=== PATIENT | male | born 1940 | race Two or more races ===

== ENCOUNTER 2025-07-04 11:17 | Inpatient (IN) | payer OTHER ==
[~2025-07-04] VITALS: Ht 167.6 cm; Wt 63.8 kg
--- NOTE | 2025-07-04 11:47 | ED.PDOC ---
History of Present Illness HPI Comments 84M presents to the ER w/ daughter and w/ prior MHx of ESRD, High Lipids, DM, HTN, CVAx3, Cancer, MS, CHF:SHx of cardiac Stents, left arm Fistula, Cholecystectomy, Partial Prostate Sx and the c/c of Bilat LE swelling. Daughter reports on the pt having had Bilateral LE edema associated w/ ecchymosis to the bilateral feet, all occurring during the past week. Daughter states on the pt having N/ S/P Dialysis. Denies any symptoms at this time. Patient denies any CP, SOB, dizziness, numbness, weakness, tingling, fever, chills, or recent fall. Chief Complaint: Extremity Swelling Time Seen by MD: 11:30 Reviewed Notes: Nurses Notes, Medications, Allergies Allergies: Coded Allergies: No Known Drug Allergy (Verified Allergy, Unknown, 07/04/25) Information Source: Patient, Relative (Child) Mode of Arrival: Ambulatory Severity: Moderate Timing: Days Duration: Since onset, Days Prehospital treatment: None Past Medical History PAST MEDICAL HISTORY: Cancer, CHF, CVA (x3), DM, ESRD, High Lipids, HTN, MS Surgical History: Cholecystectomy Surgical History (Other): Cardiac Stents, Left arm Fistula, Partial Prostate Sx Family History Family History: Reviewed,noncontributory to illness, Unknown Social History Smoker: Non-Smoker Alcohol: Denies ETOH Use Drugs: Denies Drug Use Lives In: Home Constitutional: denies: chills, diaphoresis, fatigue, fever, malaise, sweats, weakness, others EENTM: denies: blurred vision, double vision, ear bleeding, ear discharge, ear drainage, ear pain, ear ringing, eye pain, eye redness, hearing loss, mouth pain, mouth swelling, nasal discharge, nose bleeding, nose congestion, nose pain, photophobia, tearing, throat pain, throat swelling, voice changes, others Respiratory: denies: cough, hemoptysis, orthopnea, SOB at rest, shortness of breath, SOB with excertion, stridor, wheezing, others Cardiovascular: reports: edema (Bilateral LE); denies: chest pain, dizzy spells, diaphoresis, Dyspnea on exertion, irregular heart beat, left arm pain, lightheadedness, palpitations, PND, syncope, others Gastrointestinal: reports: nausea; denies: abdomen distended, abdominal pain, blood streaked bowels, constipated, diarrhea, dysphagia, difficulty swallowing, hematemesis, melena, poor appetite, poor fluid intake, rectal bleeding, rectal pain, vomiting, others Genitourinary: denies: burning, dysuria, flank pain, frequency, hematuria, incontinence, penile discharge, penile sore, pain, testicle pain, testicle swelling, urgency, others Neurological: denies: dizziness, fainting, headache, left sided numbness, left sided weakness, numbness, paresthesia, pre-existing deficit, right sided numbness, right sided weakness, seizure, speech problems, tingling, tremors, weakness, others Musculoskeletal: denies: back pain, gout, joint pain, joint swelling, muscle pain, muscle stiffness, neck pain, others Integumetry: denies: bruises, change in color, change in hair/nails, dryness, laceration, lesions, lumps, rash, wounds, others Allergic/Immunocompromised: denies: Difficulty Healing, Frequent Infections, Hives, Itching, others Hematologic/Lymphatic: denies: anemia, blood clots, easy bleeding, easy bruising, swollen glands, others Endocrine: denies: excessive hunger, excessive sweating, excessive thirst, excessive urination, flushing, intolerance to cold, intolerance to heat, unexplained weight gain, unexplained weight loss, others Psychiatric: denies: anxiety, bipolar disorder, depression, hopeless, panic disorder, schizophrenia, sleepless, suicidal, others All Other Systems: Reviewed and Negative Physical Exam General Appearance: Moderate Distress HEENT: Normal ENT Inspection, Pharynx Normal, TMs Normal Neck: Full Range of Motion, Non-Tender, Normal, Normal Inspection Respiratory: Chest Non-Tender, Decreased Breath Sounds, No Accessory Muscle Use, Rales Cardiovascular: No Edema, No JVD, No Murmur, No Gallop, Normal Peripheral P ulses, Regular Rate/Rhythm Breast Exam: Deferred Gastrointestinal: No Organomegaly, Non Tender, No Pulsatile Mass, Normal Bowel Sounds, Soft Genitalia: Deferred Pelvic: Deferred Rectal: Deferred Extremities: No calf tenderness, Normal capillary refill, Pedal edema Musculoskeletal : Apperance: Normal Neurologic: Alert, academic affairs assistant II-XII nml as Tested, Motor Weakness, Normal Affect, Normal Mood, No Sensory Deficits Cerebellar Function: Normal Reflexes: Normal Skin: Dry, Normal Color, Warm Lymphatic: No Adenopathy Was a procedure done? Was a procedure done?: No Differential Dx Considerations may include: Generalized weakness, electrolyte imbalance, CHF, DVT X-Ray, Labs, Meds, VS Vital Signs Date Time Temp Pulse Resp B/P (MAP) Pulse Ox O2 Delivery O2 Flow Rate FiO2 07/04/25 11:19 98.0 102 16 144/96 94 98.0 Lab Test 07/04/25 12:23 Range/Units White Blood Count 9.8 4.4-10.8 10^3/uL Red Blood Count 3.84 L 4.5-5.90 10^6/uL Hemoglobin 12.9 L 13.5-17.5 g/dL Hematocrit 39.3 L 41.0-53.0 % Mean Corpuscular Volume 102.2 H 80.0-100.0 fL Mean Corpuscular Hemoglobin 33.5 H 28.0-32.0 pg Mean Corpuscular Hemoglobin Concent 32.8 32.0-36.0 g/dL Red Cell Distribution Width 16.5 H 11.8-14.3 % Platelet Count 90 L 140-450 10^3/uL Mean Platelet Volume 10.7 6.9-10.8 fL Neutrophils (%) (Auto) 85.0 H 37.0-80.0 % Lymphocytes (%) (Auto) 3.8 L 10.0-50.0 % Monocytes (%) (Auto) 4.6 0.0-12.0 % Eosinophils (%) (Auto) 5.8 0.0-7.0 % Basophils (%) (Auto) 0.8 0.0-2.0 % Neutrophils # (Auto) 8.3 1.6-8.6 10 ^3/uL Lymphocytes # (Auto) 0.4 0.4-5.4 10 ^3/uL Monocytes # (Auto) 0.5 0-1.3 10 ^3/uL Eosinophils # (Auto) 0.6 0-0.8 10 ^3/uL Basophils # (Auto) 0.1 0-0.2 10 ^3/uL Nucleated Red Blood Cells 0.0 % Sodium Level 133 L 136-145 mmol/L Potassium Level 4.1 3.5-5.1 mmol/L Chloride Level 93 L 98-107 mmol/L Carbon Dioxide Level 29 20-31 mmol/L Anion Gap 11 5-15 Blood Urea Nitrogen 43 H 9-23 mg/dL Creatinine 4.51 H 0.700-1.30 mg/dL Glomerular Filtration Rate Calc 12 >90 mL/min BUN/Creatinine Ratio 9.5 L 10.0-20.0 Serum Glucose 222 H 74-106 mg/dL Lactic Acid Level 1.7 0.4-2.0 mmol/L Calcium Level 8.6 L 8.7-10.4 mg/dL B-Type Natriuretic Peptide > 5000.00 0-100 pg/mL DVT study bilaterally is negative The chest x-ray shows: IMPRESSION: Cardiomegaly with CHF. Small left pleural effusion. The BNP is greater than 5000 The glucose is 222 The chemistry and CBC is within normal limits except for BUN of 43 and a creatinine of 4.51 The patient is being admitted at this time Images Reviewed?: Images reviewed and evaluated by me Time of 1ST Reevaluation: 12:00 Reevaluation 1ST: Unchanged Patient Education/Counseling: Diagnosis, Treatment, Prognosis Family Education/Counseling: Diagnosis, Treatment, Prognosis SEPSIS Sepsis Screen Date sepsis recognized/suspect: Jul 04, 2025 Time Sepsis recognized/suspect: 1123 Recent Procedure: No On Antibiotic Therapy: No Respiratory Rate >20: No Heart Rate >90: No Temp<36 C (96.8 F) or >38.3 C: No SBP <90 or MAP <65 mmHG: No New Acute Mental Status Change: No Is the patient on CPAP, BIPAP,: No Physician Orders Heplock Iv (07/04/25 11:35) Pulse Oximetry (07/04/25 11:35) Packaging Sales Consultant (07/04/25 11:35) Blood Pressure (07/04/25 11:35) Chest Two Views Routine (07/04/25 11:35) Electrocardigram (07/04/25 11:35) Blood Culture (07/04/25 11:35) Bilat Lower Dvt (07/04/25 11:35) Consistent Carb(Ccho)Diabetes (07/04/25 Lunch) Glucose Blood (Accu-Chek Comfort Curve T (07/04/25 17:00) Insulin R (Human) (Insulin R) (07/04/25 22:00) Insulin R (Human) (Insulin R) (07/04/25 17:00) Dextrose 50% Syringe (07/04/25 13:15) Allergies (07/04/25 13:13) Code Status (07/04/25 13:13) Sodium Chloride Lock (Saline Lock Ns) (07/04/25 14:00) Oxygen Per Hour (07/04/25 13:13) Hydrocodone-Acet 5/325mg Tab ([place] 5/32 (07/04/25 13:15) Ondansetron Hcl (Zofran) (07/04/25 13:15) Docusate Sodium Capsule (Colace Capsule) (07/04/25 13:15) Fall Risk Precautions In Place QSHIFT (07/04/25 13:13) Complete Blood Count (07/05/25 04:00) Comprehensive Metabolic Panel (07/05/25 04:00) Echo 2d Mode Cardiac Dop (07/04/25 13:13) Condition: Serious (07/04/25 13:13) Acetaminophen Tablet (Tylenol Tablet) (07/04/25 13:15) Maintain Bed Rest (07/04/25 13:13) Sequential Compression Device (07/04/25 ) Atorvastatin (Lipitor) (07/04/25 22:00) Carvedilol Tablet (Coreg Tablet) (07/04/25 22:00) Clonidine Hcl Tablet (Catapres Tablet) (07/04/25 13:15) Tamsulosin Hydrochloride (Flomax) (07/04/25 18:00) Vital Signs Date Time Temp Pulse Resp B/P (MAP) Pulse Ox O2 Delivery O2 Flow Rate FiO2 07/04/25 11:19 98.0 102 16 144/96 94 98.0 Laboratory Tests Test 07/04/25 12:23 Lactic Acid Level 1.7 mmol/L (0.4-2.0) White Blood Count 9.8 10^3/uL (4.4-10.8) Departure 1 Departure Time of Disposition: 13:48 Impression: Primary Impression: Acute on chronic diastolic heart failure Additional Impression: Pedal edema Disposition: 09 ADMITTED INPATIENT Admit to: Tele Condition: Other Critical Care Note Critical Care Time?: No Stability Stability form required: Yes Unstable for transfer: Telemetry monitoring (Telemetry monitoring required), ED Physician Assesment (Clinical assesment) Heart Score Heart Score: Heart Score Response (Comments) Value History N/A 0 EKG N/A 0 Age N/A 0 Risk Factors N/A 0 Troponin N/A 0 Total 0 I personally scribed for MACRINA HARDIN MD ([email or web address]) on 07/04/25 at 11:47. Electronically submitted by Rick Solorio ([email or web address]). MACRINA HARDIN MD Jul 04, 2025 11:47
--- NOTE | 2025-07-04 12:12 | DVH ---
CHEST RADIOGRAPH Indication: sob Technique: Frontal and lateral view of the chest was obtained Comparison: XY CHEST PORTABLE on DOS: 03/19/25, XY CHEST PORTABLE on DOS: 02/28/25, XY CHEST PORTABLE on DOS: 11/20/24, XY CHEST PORTABLE on DOS: 11/17/24, XY CHEST XRAY 1 VIEW on DOS: 11/01/24 FINDINGS: Lines and Tubes: None Lungs: Increased interstitial prominence. This may represent pulmonary vascular congestion and/or viral pneumonia. Pleura: Small left pleural effusion. No pneumothorax. Cardiomediastinal contours: Cardiomegaly. Bones: Unremarkable IMPRESSION: Cardiomegaly with CHF. Small left pleural effusion.
--- NOTE | 2025-07-04 12:28 | DVH ---
Bilateral lower extremity venous duplex Clinical History: swelliing Comparison: US BILAT LOWER DVT on DOS: 11/02/24, US BILAT LOWER DVT on DOS: 12/01/23 Findings: Duplex Doppler evaluation of the deep venous systems of both lower extremities from the common femoral veins to the popliteal veins including color Doppler and spectral/pulsed waveform analysis was performed. RIGHT SIDE: The common femoral vein demonstrates appropriate compressibility and waveform variability. There is compressibility/patency of the great saphenous vein at the proximal thigh. The femoral vein demonstrates appropriate compressibility and waveform variability. The deep femoral vein demonstrates appropriate compressibility and waveform variability. The popliteal vein demonstrates appropriate compressibility and waveform variability. There is normal compressibility at the tibioperoneal trunk. LEFT SIDE: The common femoral vein demonstrates appropriate compressibility and waveform variability. There is compressibility/patency of the great saphenous vein at the proximal thigh. The femoral vein demonstrates appropriate compressibility and waveform variability. The deep femoral vein demonstrates appropriate compressibility and waveform variability. The popliteal vein demonstrates appropriate compressibility and waveform variability. There is normal compressibility at the tibioperoneal trunk. IMPRESSION: No right or left femoropopliteal venous thrombosis. If clinical concern/symptoms persist or worsen, short-interval follow-up study is suggested. END IMPRESSION:
[2025-07-04 12:54] LABS: Mean Corpuscular Hemoglobin 33.5 pg (28.0-32.0); Nucleated Red Blood Cells % 0.0 %
[2025-07-04 12:55] LABS: Hematocrit 39.3 % (41.0-53.0); Hemoglobin 12.9 g/dL (13.5-17.5); Mean Corpuscular Volume 102.2 fL (80.0-100.0)
[2025-07-04 12:58] LABS: Potassium 4.1 mmol/L (3.5-5.1)
[2025-07-04 12:59] LABS: Anion Gap 11 (5-15); Carbon Dioxide 29 mmol/L (20-31)
[2025-07-04 13:01] LABS: Calcium 8.6 mg/dL (8.7-10.4); Chloride 93 mmol/L (98-107); Sodium 133 mmol/L (136-145)
[2025-07-04 13:04] LABS: BUN/Creatinine Ratio 9.5 (10.0-20.0)
[2025-07-04 13:05] LABS: Blood Urea Nitrogen 43 mg/dL (9-23); Glucose 222 mg/dL (74-106)
[2025-07-04] MEDS ORDERED: ACETAMINOPHEN 325 MG TAB PO PRN (13:15)
[2025-07-04] MEDS ORDERED: DOCUSATE SOD 100 MG CAP PO PRN (13:15)
[2025-07-04] MEDS ORDERED: ONDANSETRON HCL 4 MG/2 ML VIAL IV PRN (13:15)
[2025-07-04] MEDS: SODIUM CHLOR 0.9% PF (SALINE LOCK) 10ML VIAL/SYR IV SCH (14:00)
--- NOTE | 2025-07-04 14:58 | DVHHP2 ---
History of Present Illness Reason for Visit: Acute exacerbation of congestive heart failure History of Present Illness The patient is a 84-year-old male with past medical history of kidney cancer, CH F, CVA, end-stage renal disease on hemodialysis T,TH,SAT, hyperlipidemia, HI, and hypertension who presented to [facility] ED accompanied by daughter with complaint of bilateral lower extremity pitting edema. Patient reports he has been experiencing lower extremity swelling associated with ecchymoses of the feet for the past 1 week, getting worse today that prompted this visit. Patient was seen and evaluated in the ED, laboratory data shows WBC 9.8, hemoglobin 12.9, hematocrit 39.3, platelets 90, sodium 133, potassium 4.1, BUN 43, creatinine 4.51, GFR 12, glucose 222, calcium 8.6, BNP > 5000, blood pressure 144/96, heart rate 102, temperature 98.0 F, O2 saturation 95% on room air. Chest x-ray revealing cardiomegaly with congestive heart failure, small left pleural effusion. Please see medication orders section in the computer. On my assessment, patient denied chest pain, no headache, dizziness, diaphoresis, shortness of breaths, no abdominal pain, diarrhea, nausea, vomiting, fever, no chills. Patient was admitted for further evaluation and medical management. Past Medical History Kidney cancer, CHF, CVA (x3), DM, ESRD, High Lipids, HTN, HI Past Surgical History Cholecystectomy, Cardiac Stents, Left arm Fistula, Partial Prostate surgery Family History Reviewed, noncontributory to the management of this case. Past Social History The patient lives at home, denies smoking, alcohol or illicit drugs abuse. Review of Systems Constitutional: Yes: Weakness; No: Fever, Chills, Sweats, Malaise, Other Eyes: No: Pain, Vision change, Conjunctivae inflammation, Eyelid inflammation, Other, Redness ENT: No: Ear pain, Ear discharge, Nose pain, Nose discharge, Nose congestion, Mouth pain, Mouth swelling, Throat pain, Throat swelling, Other Respiratory: Shortness of breath; No: Cough, Dry, SOB with excertion, Wheezing, Hemoptysis, Pleuritic Pain, Sputum, Wheezing, Other Cardiovascular: Edema (Lower extremity); No: Chest Pain, Palpitations, Orthopnea, Paroxysmal Noc. Dyspnea, Lt Headedness, Other Gastrointestinal: No: Nausea, Vomiting, Abdominal Pain, Diarrhea, Constipation, Melena, Hematochezia, Other Genitourinary: No Dysuria, No Frequency, No Incontinence, No Hematuria, No Retention; Other (On hemodialysis) Musculoskeletal: other (Left arm AV shunt); No: neck pain, shoulder pain, arm pain, back pain, hand pain, leg pain, foot pain Skin: No: Rash, Lesions, Jaundice, Bruising, Other Neurological: No: Weakness, Numbness, Incoordination, Change in speech, Confusion, Seizures, Other Allergies: Coded Allergies: No Known Drug Allergy (Verified Allergy, Unknown, 07/04/25) Medications Current Medications Medications Dose Ordered Sig/Markus Route Start Time Stop Time Status Last Admin Dose Admin Diagnostic Test (Pha) 1 strip ACHS 07/04/25 17:00 Insulin Human Regular HS SC 07/04/25 22:00 Insulin Human Regular AC SC 07/04/25 17:00 Dextrose 50 ml UD PRN IV 07/04/25 13:15 Sodium Chloride 10 ml Q8HR IV 07/04/25 14:00 Acetaminophen/ Hydrocodone Bitart 1 tab Q4HP PRN PO 07/04/25 13:15 Ondansetron HCl 4 mg Q4HP PRN IV 07/04/25 13:15 Docusate Sodium 100 mg BIDPRN PRN PO 07/04/25 13:15 Acetaminophen 650 mg Q6HP PRN PO 07/04/25 13:15 Atorvastatin Calcium 10 mg HS PO 07/04/25 22:00 Carvedilol 12.5 mg Q12HR PO 07/04/25 22:00 Clonidine HCl 0.1 mg Q4HP PRN PO 07/04/25 13:15 Tamsulosin HCl 0.4 mg QPM PO 07/04/25 18:00 Exam Vital Signs Vital Signs Date Time Temp Pulse Resp B/P (MAP) Pulse Ox O2 Delivery O2 Flow Rate FiO2 07/04/25 11:19 98.0 102 16 144/96 94 98.0 General Appearance: Alert, Oriented X3, Cooperative, No acute distress HEENT: Atraumatic, PERRLA, EOMI, Mucous membr. moist/pink Respiratory: Normal air movement, Other (Diminished breath sounds) Cardiovascular: Regular rate, Normal S1, Normal S2, No murmurs Abdominal: Normal bowel sounds, Soft, No tenderness, No hepatospenomegaly, No masses Extremities: No clubbing, No cyanosis, No edema, Normal pulses, No tenderness/swelling Skin: No rashes, No significant lesion Neuro: Normal speech, Normal tone, Sensation intact, Cranial nerves 3-12 NL, Reflexes 2+, Other (Generalized weakness) Psych/Mental Status: Mental status NL, Mood NL Labs/Xrays Labs Test 07/04/25 12:23 Range/Units White Blood Count 9.8 4.4-10.8 10^3/uL Red Blood Count 3.84 L 4.5-5.90 10^6/uL Hemoglobin 12.9 L 13.5-17.5 g/dL Hematocrit 39.3 L 41.0-53.0 % Mean Corpuscular Volume 102.2 H 80.0-100.0 fL Mean Corpuscular Hemoglobin 33.5 H 28.0-32.0 pg Mean Corpuscular Hemoglobin Concent 32.8 32.0-36.0 g/dL Red Cell Distribution Width 16.5 H 11.8-14.3 % Platelet Count 90 L 140-450 10^3/uL Mean Platelet Volume 10.7 6.9-10.8 fL Neutrophils (%) (Auto) 85.0 H 37.0-80.0 % Lymphocytes (%) (Auto) 3.8 L 10.0-50.0 % Monocytes (%) (Auto) 4.6 0.0-12.0 % Eosinophils (%) (Auto) 5.8 0.0-7.0 % Basophils (%) (Auto) 0.8 0.0-2.0 % Neutrophils # (Auto) 8.3 1.6-8.6 10 ^3/uL Lymphocytes # (Auto) 0.4 0.4-5.4 10 ^3/uL Monocytes # (Auto) 0.5 0-1.3 10 ^3/uL Eosinophils # (Auto) 0.6 0-0.8 10 ^3/uL Basophils # (Auto) 0.1 0-0.2 10 ^3/uL Nucleated Red Blood Cells 0.0 % Sodium Level 133 L 136-145 mmol/L Potassium Level 4.1 3.5-5.1 mmol/L Chloride Level 93 L 98-107 mmol/L Carbon Dioxide Level 29 20-31 mmol/L Anion Gap 11 5-15 Blood Urea Nitrogen 43 H 9-23 mg/dL Creatinine 4.51 H 0.700-1.30 mg/dL Glomerular Filtration Rate Calc 12 >90 mL/min BUN/Creatinine Ratio 9.5 L 10.0-20.0 Serum Glucose 222 H 74-106 mg/dL Lactic Acid Level 1.7 0.4-2.0 mmol/L Calcium Level 8.6 L 8.7-10.4 mg/dL B-Type Natriuretic Peptide > 5000.00 0-100 pg/mL PATIENT: PAUL SAEZ ACCT: [id number] UNIT: [id number] : 1940 LOC: ER ROOM / BED: / AGE / SEX: 84 / M ADM STATUS: REG ER SERVICE 1135 ORDERING PHYSICIAN: MACRINA HARDIN MD PROCEDURE(s): BLDVT - BiLat Lower DVT REASON: swelliing ORDER NUMBER(s): [id number], ACCESSION NUMBER(s): [id number] Bilateral lower extremity venous duplex Clinical History: swelliing Comparison: US BILAT LOWER DVT on DOS: 11/02/24, US BILAT LOWER DVT on DOS: 12/01/23 Findings: Duplex Doppler evaluation of the deep venous systems of both lower extremities from the common femoral veins to the popliteal veins including color Doppler and spectral/pulsed waveform analysis was performed. RIGHT SIDE: The common femoral vein demonstrates appropriate compressibility and waveform variability. There is compressibility/patency of the great saphenous vein at the proximal thigh. The femoral vein demonstrates appropriate compressibility and waveform variability. The deep femoral vein demonstrates appropriate compressibility and waveform variability. The popliteal vein demonstrates appropriate compressibility and waveform variability. There is normal compressibility at the tibioperoneal trunk. LEFT SIDE: The common femoral vein demonstrates appropriate compressibility and waveform variability. There is compressibility/patency of the great saphenous vein at the proximal thigh. The femoral vein demonstrates appropriate compressibility and waveform variability. The deep femoral vein demonstrates appropriate compressibility and waveform variability. The popliteal vein demonstrates appropriate compressibility and waveform variability. There is normal compressibility at the tibioperoneal trunk. IMPRESSION: No right or left femoropopliteal venous thrombosis. If clinical concern/symptoms persist or worsen, short-interval follow-up study is suggested. ORDERING PHYSICIAN: MACRINA HARDIN MD PROCEDURE(s): CXR2 - CHEST TWO VIEWS ROUTINE REASON: sob ORDER NUMBER(s): [id number], ACCESSION NUMBER(s): [id number] CHEST RADIOGRAPH Indication: sob Technique: Frontal and lateral view of the chest was obtained Comparison: XY CHEST PORTABLE on DOS: 03/19/25, XY CHEST PORTABLE on DOS: 02/28/25, XY CHEST PORTABLE on DOS: 11/20/24, XY CHEST PORTABLE on DOS: 11/17/24, XY CHEST XRAY 1 VIEW on DOS: 11/01/24 FINDINGS: Lines and Tubes: None Lungs: Increased interstitial prominence. This may represent pulmonary vascular congestion and/or viral pneumonia. Pleura: Small left pleural effusion. No pneumothorax. Cardiomediastinal contours: Cardiomegaly. Bones: Unremarkable IMPRESSION: Cardiomegaly with CHF. Small left pleural effusion. SEPSIS Sepsis Screen Date sepsis recognized/suspect: Jul 04, 2025 Time Sepsis recognized/suspect: 1123 Recent Procedure: No On Antibiotic Therapy: No Respiratory Rate >20: No Heart Rate >90: No Temp<36 C (96.8 F) or >38.3 C: No SBP <90 or MAP <65 mmHG: No New Acute Mental Status Change: No Is the patient on CPAP, BIPAP,: No Physician Orders Heplock Iv (07/04/25 11:35) Pulse Oximetry (07/04/25 11:35) Electro Mechanical Technician (07/04/25 11:35) Blood Pressure (07/04/25 11:35) Chest Two Views Routine (07/04/25 11:35) Electrocardigram (07/04/25 11:35) Blood Culture (07/04/25 11:35) Bilat Lower Dvt (07/04/25 11:35) Consistent Carb(Ccho)Diabetes (07/04/25 Lunch) Glucose Blood (Accu-Chek Comfort Curve T (07/04/25 17:00) Insulin R (Human) (Insulin R) (07/04/25 22:00) Insulin R (Human) (Insulin R) (07/04/25 17:00) Dextrose 50% Syringe (07/04/25 13:15) Allergies (07/04/25 13:13) Code Status (07/04/25 13:13) Sodium Chloride Lock (Saline Lock Ns) (07/04/25 14:00) Oxygen Per Hour (07/04/25 13:13) Hydrocodone-Acet 5/325mg Tab (Clarkia 5/32 (07/04/25 13:15) Ondansetron Hcl (Zofran) (07/04/25 13:15) Docusate Sodium Capsule (Colace Capsule) (07/04/25 13:15) Fall Risk Precautions In Place QSHIFT (07/04/25 13:13) Complete Blood Count (07/05/25 04:00) Comprehensive Metabolic Panel (07/05/25 04:00) Echo 2d Mode Cardiac Dop (07/04/25 13:13) Condition: Serious (07/04/25 13:13) Acetaminophen Tablet (Tylenol Tablet) (07/04/25 13:15) Maintain Bed Rest (07/04/25 13:13) Sequential Compression Device (07/04/25 ) Atorvastatin (Lipitor) (07/04/25 22:00) Carvedilol Tablet (Coreg Tablet) (07/04/25 22:00) Clonidine Hcl Tablet (Catapres Tablet) (07/04/25 13:15) Tamsulosin Hydrochloride (Flomax) (07/04/25 18:00) B-Complex W/ C & Folic Tablet (Nephro-Vi (07/05/25 10:00) Sevelamer (Renagel) (07/04/25 18:00) *[facility] (07/04/25 14:53) Admit (07/04/25 14:53) Nitroglycerin Sublingual (Ntrostat Subli (07/04/25 15:00) Morphine Sulfate Injection (07/04/25 15:00) Stat Ekg For Chest Pain (07/04/25 14:53) Notify Md Of Changes From Base (07/04/25 14:53) Mattress Filling Machine Tender For 24 Hours (07/04/25 14:53) Emergency Dysrhythmia Protocol (07/04/25 14:53) Rhythm Strips Once Every Shift (07/04/25 14:53) Oxygen By Nasal Cannula (07/04/25 14:53) Vital Signs Date Time Temp Pulse Resp B/P (MAP) Pulse Ox O2 Delivery O2 Flow Rate FiO2 07/04/25 11:19 98.0 102 16 144/96 94 98.0 Laboratory Tests Test 07/04/25 12:23 Lactic Acid Level 1.7 mmol/L (0.4-2.0) White Blood Count 9.8 10^3/uL (4.4-10.8) Assessment/Plan Assessment/Plan Acute exacerbation of congestive heart failure Diabetes mellitus with hyperglycemia End-stage renal disease on hemodialysis Generalized weakness Plan 1. Admit to telemetry unit 2. Breathing treatment 3. Pain control management 4. Management of fluids and electrolytes 5. Consultation for nephrology 6. Diagnostic tests chest x-ray 7. DVT prophylaxis-on aspirin 8. Repeat labs CBC, CMP in a.m. 9. Continue with current medical management 10. Treatment plan discussed with patient/daughter and RN. Patient/daughter verbalized understanding. Plan discussed with: Patient, Daughter (At bedside), Other (RN) My Orders Orders - ETHAN PLUMMER DNP Procedure Category Date Status Time Consistent DIET 07/04/25 Transmitted Carb(Ccho)Diabetes Lunch Glucose Blood PHA 07/04/25 In Process (Accu-Chek Comfort 17:00 Insulin R (Human) PHA 07/04/25 In Process (Insulin R) 22:00 Insulin R (Human) PHA 07/04/25 In Process (Insulin R) 17:00 Dextrose 50% Syringe PHA 07/04/25 In Process 13:15 Allergies GARRY 07/04/25 In Process 13:13 Code Status CODE 07/04/25 Transmitted 13:13 Sodium Chloride Lock PHA 07/04/25 In Process (Saline Lock Ns) 14:00 Oxygen Per Hour RT 07/04/25 Transmitted 13:13 Hydrocodone-Acet PHA 07/04/25 In Process 5/325mg Tab (Clarkia 13:15 Ondansetron Hcl PHA 07/04/25 In Process (Zofran) 13:15 Docusate Sodium PHA 07/04/25 In Process Capsule (Colace 13:15 Fall Risk Precautions GARRY 07/04/[address] 13:13 Complete Blood Count LAB 07/05/25 Verified 04:00 Comprehensive LAB 07/05/25 Verified Metabolic Panel 04:00 Echo 2d Mode Cardiac US 07/04/25 Logged DOP 13:13 Condition: Serious GARRY 07/04/25 In Process 13:13 Acetaminophen Tablet PHA 07/04/25 In Process (Tylenol Tablet) 13:15 Maintain Bed Rest GARRY 07/04/25 In Process 13:13 Sequential GARRY 07/04/25 In Process Compression Device Atorvastatin (Lipitor) PHA 07/04/25 In Process 22:00 Carvedilol Tablet PHA 07/04/25 In Process (Coreg Tablet) 22:00 Clonidine Hcl Tablet PHA 07/04/25 In Process (Catapres Tablet) 13:15 Tamsulosin PHA 07/04/25 In Process Hydrochloride (Flomax) 18:00 B-Complex W/ C & PHA 07/05/25 Transmitted Folic Tablet 10:00 Sevelamer (Renagel) PHA 07/04/25 Verified 18:00 *[facility] CONS 07/04/25 Transmitted -[place] 14:53 Admit ADMIT 07/04/25 Verified 14:53 Nitroglycerin [facility] 07/04/25 Verified Sublingual (Ntrostat 15:00 Morphine Sulfate PHA 07/04/25 Verified Injection 15:00 Stat Ekg For Chest [facility] 07/04/25 Verified Pain 14:53 Notify Md Of Changes [facility] 07/04/25 Verified From Base 14:53 Mattress Filling Machine Tender For [facility] 07/04/25 Verified 24 Hours 14:53 Emergency Dysrhythmia [facility] 07/04/25 Verified Protocol 14:53 Rhythm Strips Once [facility] 07/04/25 Verified Every Shift 14:53 Oxygen By Nasal RT 07/04/25 Verified Cannula 14:53 Problem List: (1) Acute exacerbation of congestive heart failure (2) Diabetes mellitus with hyperglycemia (3) End-stage renal disease on hemodialysis (4) Generalized weakness Date of Service: Jul 04, 2025 Billing Provider: ETHAN PLUMMER DNP Common Visit Codes: [id number] INP/OBS CARE (HIGH) ETHAN PLUMMER DNP Jul 04, 2025 14:58
[2025-07-04] MEDS ORDERED: NITROGLYCERIN 0.4 MG SL TAB SL PRN (15:00)
[2025-07-04] MEDS ORDERED: MORPHINE SULFATE INJ 2 MG/ml SYRG IV PRN (15:00)
[2025-07-04 17:00] VITALS: BP 149/96; PULSE 104; RESP 18; TEMP 97.2; O2SAT 95
[2025-07-04] MEDS: ACCU-CHEK COMFORT CURVE STRIP VI SCH (17:00)
[2025-07-04 17:51] VITALS: BP 149/96; PULSE 104; TEMP 97.2; O2SAT 95
[2025-07-04] MEDS ORDERED: ATOR-507 PO (17:51)
[2025-07-04] MEDS ORDERED: HYDR50TA47 PO (17:51)
[2025-07-04] MEDS ORDERED: INSLANTI SC (17:51)
[2025-07-04] MEDS ORDERED: NIFE1TAB30 PO (17:51)
[2025-07-04] MEDS ORDERED: METO-289 PO (17:51)
[2025-07-04] MEDS ORDERED: ASPI-543 PO (17:51)
[2025-07-04] MEDS ORDERED: CALC667C PO (17:51)
[2025-07-04] MEDS ORDERED: ISOS1TAB28 PO (17:51)
[2025-07-04] MEDS: SEVELAMER 800 MG TAB PO SCH (18:32)
[2025-07-04] MEDS: TAMSULOSIN HYDROCHLORIDE 0.4 MG CAP PO SCH (18:33)
[2025-07-04] MEDS: InsuLIN REG 1unit/0.01ml Soln (100units/ml) SC SCH ×2 (18:39→21:39)
[2025-07-04 20:00] VITALS: PULSE 108; RESP 18; O2SAT 94
[2025-07-04 21:00] VITALS: BP 122/87; PULSE 108; RESP 18; TEMP 97.4; O2SAT 94
[2025-07-04] MEDS: CARVEDILOL 12.5 MG TAB PO SCH (21:38)
[2025-07-04] MEDS: ATORVASTATIN 20 MG TAB PO SCH (21:38)
[2025-07-05] VITALS (7 sets, daily range): BP systolic 113–133; BP diastolic 71–96; PULSE 83–98; RESP 17–21; TEMP 97.4–98.8; O2SAT 93–100
[2025-07-05] MEDS: DEXTROSE (50%) 50ML SYRG IV PRN (04:00)
[2025-07-05 06:37] LABS: Hematocrit 35.4 % (41.0-53.0); Hemoglobin 11.8 g/dL (13.5-17.5); Mean Corpuscular Hemoglobin 33.3 pg (28.0-32.0); Mean Corpuscular Volume 100.3 fL (80.0-100.0); Nucleated Red Blood Cells % 0.1 %
[2025-07-05 06:50] LABS: Albumin 3.4 g/dL (3.2-4.8); Anion Gap 14 (5-15); BUN/Creatinine Ratio 9.9 (10.0-20.0); Bilirubin, Total 0.6 mg/dL (0.2-1.0); Carbon Dioxide 27 mmol/L (20-31); Glucose 75 mg/dL (74-106); Potassium 4.7 mmol/L (3.5-5.1); Sodium 136 mmol/L (136-145); Total Protein 6.5 g/dL (5.7-8.2)
[2025-07-05 06:53] LABS: Alanine Aminotransferase 53 U/L (7-40); Alkaline Phosphatase 116 U/L (46-116); Blood Urea Nitrogen 55 mg/dL (9-23); Calcium 8.3 mg/dL (8.7-10.4); Chloride 95 mmol/L (98-107)
[2025-07-05] MEDS: B-COMPLEX W/ C & FOLIC ACID(NEPHROVITE TAB) PO SCH (08:42)
[2025-07-05] MEDS: FUROSEMIDE 40 MG/4 ML VIAL IV ONE (08:43)
[2025-07-05] MEDS: ACCU-CHEK COMFORT CURVE STRIP VI SCH ×2 (11:52→17:00)
[2025-07-05] MEDS: InsuLIN REG 1unit/0.01ml Soln (100units/ml) SC SCH ×2 (11:52→17:00)
--- NOTE | 2025-07-05 12:04 | DVHPN2 ---
Subjective Came for SOB Changes from previous H/P or p: Changes Eyes: No Pain, No Vision change, No Conjunctivae inflammation, No Eyelid inflammation, No Other, No Redness ENT: No Ear pain, No Ear discharge, No Nose pain, No Nose discharge, No Nose congestion, No Mouth pain, No Mouth swelling, No Throat pain, No Throat swelling, No Other Cardiovascular: No Chest Pain, No Palpitations, No Orthopnea, No Paroxysmal Noc. Dyspnea; Edema (Lower extremity); No Lt Headedness, No Other Respiratory: No Cough, No Dry; Shortness of breath; No SOB with excertion, No Wheezing, No Hemoptysis, No Pleuritic Pain, No Sputum, No Other Gastrointestinal: No Nausea, No Vomiting, No Abdominal Pain, No Diarrhea, No Constipation, No Melena, No Hematochezia, No Other Genitourinary: No Dysuria, No Frequency, No Incontinence, No Hematuria, No Retention; Other (On hemodialysis) Musculoskeletal: other (Left arm AV shunt); No neck pain, No shoulder pain, No arm pain, No back pain, No hand pain, No leg pain, No foot pain Skin: No Rash, No Lesions, No Jaundice, No Bruising, No Other Objective Vitals Vital Signs Date Time Temp Pulse Resp B/P (MAP) Pulse Ox O2 Delivery O2 Flow Rate FiO2 07/05/25 09:00 97.6 92 17 117/83 (94) 100 97.6 07/04/25 20:00 Room Air* 0 21 Intake/Output Intake and Output 07/05/25 07:00 Intake Total 0 ml Balance 0 ml Intake Oral 0 ml General Appearance: Alert, Oriented X3, mild distress Lungs: Other (B Rhonchi) Cardiovascular: Regular rate, Normal S1, Normal S2 Abdomen: Normal bowel sounds, Soft, No tenderness Extremities: Other (2+ edema B) Medications Current Medications Medications Dose Ordered Sig/Markus Route Start Time Stop Time Status Last Admin Dose Admin Sodium Chloride 10 ml Q8HR IV 07/04/25 14:00 07/05/25 06:00 10 ML Acetaminophen/ Hydrocodone Bitart 1 tab Q4HP PRN PO 07/04/25 13:15 Ondansetron HCl 4 mg Q4HP PRN IV 07/04/25 13:15 Docusate Sodium 100 mg BIDPRN PRN PO 07/04/25 13:15 Acetaminophen 650 mg Q6HP PRN PO 07/04/25 13:15 Atorvastatin Calcium 10 mg HS PO 07/04/25 22:00 07/04/25 21:38 10 MG Carvedilol 12.5 mg Q12HR PO 07/04/25 22:00 07/05/25 08:42 12.5 MG Clonidine HCl 0.1 mg Q4HP PRN PO 07/04/25 13:15 Tamsulosin HCl 0.4 mg QPM PO 07/04/25 18:00 07/04/25 18:33 0.4 MG Multivit/Ca Carb/ B Cmplx/FA/Prenat 1 tab DAILY PO 07/05/25 10:00 07/05/25 08:42 1 TAB Sevelamer HCl 800 mg TIDWM PO 07/04/25 18:00 07/05/25 11:44 800 MG Nitroglycerin 0.4 mg Q5MINP PRN SL 07/04/25 15:00 Morphine Sulfate 2 mg Q30M PRN IV 07/04/25 15:00 Diagnostic Test (Pha) 1 strip IQ4HR 07/05/25 12:00 07/05/25 11:52 1 STRIP Insulin Human Regular IQ4HR SC 07/05/25 12:00 07/05/25 11:52 15 UNITS Dextrose 50 ml UD PRN IV 07/05/25 10:30 Laboratory Results Laboratory Tests 07/05/25 05:37 Chemistry Test 07/04/25 12:23 07/05/25 05:37 Calcium Level 8.6 mg/dL (8.7-10.4) L 8.3 mg/dL (8.7-10.4) L Albumin 3.4 g/dL (3.2-4.8) Total Protein 6.5 g/dL (5.7-8.2) Cardiac Markers Test 07/04/25 12:23 B-Type Natriuretic Peptide > 5000.00 pg/mL (0-100) LFT Test 07/05/25 05:37 Alanine Aminotransferase (ALT) 53 U/L (7-40) H Alkaline Phosphatase 116 U/L (46-116) Aspartate Amino Transferase (AST) 14 U/L (13-40) Total Bilirubin 0.6 mg/dL (0.2-1.0) Assessment/Plan Assessment/Plan Acute hypoxic respiratory failure CHF, acute on chronic, ESRD Old CVA Mixed hyperlipidemia HTN Kidney CA PLAN: Nephrology consult O2 prn Coreg Lantus Echo Plan discussed with: Patient Date of Service: Jul 05, 2025 Billing Provider: ABDIRIZAK WILLS MD Common Visit Codes: NOT BILLABLE ABDIRIZAK WILLS MD Jul 05, 2025 12:04
--- NOTE | 2025-07-05 14:59 | DVHINCON2 ---
Date of service: Jul 05, 2025 Referring Physician Ricardo Verde, nurse practitioner Reason for Consultation End-stage renal disease to manage hemodialysis History of Present Illness Patient is a 84-year-old male with past medical history significant for end- stage renal disease on hemodialysis, prostate cancer CHF, CVA (x3), DM, High Lipids, HTN, and IL is admitted for worsening bilateral lower extremity edema and discoloration. On admission Nephrology is consulted for management of hemodialysis Past Medical History PAST MEDICAL HISTORY: Cancer, CHF, CVA (x3), DM, ESRD, High Lipids, HTN, IL Past Surgical History Surgical History: Cholecystectomy Cardiac Stents, Left arm Fistula, Partial Prostate Sx Allergies: Coded Allergies: No Known Drug Allergy (Verified Allergy, Unknown, 07/04/25) Home Meds Reported Medications Nifedipine (Nifedipine Er) 60 Mg Tab, 1 TAB PO DAILY, #30 TAB 5 Refills 07/04/25 Metoprolol Succinate (Metoprolol Succinate Er) 50 Mg Tab, 50 MG PO DAILY for 30 Days, MG 07/04/25 Isosorbide Mononitrate (Isosorbide Mononitrate Er) 30 Mg Tab, 30 MG PO DAILY for 30 Days, MG 07/04/25 Insulin Glargine (Lantus) 100 Unit/Ml Inj, 25 UNIT SC HS, INJ 07/04/25 Hydralazine Hcl (Hydralazine Hcl) 50 Mg Tab, 50 MG PO BID for 30 Days, MG 07/04/25 Calcium Acetate (Phosphate Bin (Calcium Acetate) 667 Mg Cap, 1334 MG PO TIDWM for 30 Days, MG 07/04/25 Atorvastatin Calcium (Lipitor) 40 Mg Tab, 1 TAB PO QPM, #90 TAB 1 Refill 07/04/25 Aspirin (Aspir-Low) 81 Mg Tab, 81 MG PO DAILY for 30 Days, MG 07/04/25 Current Medications Current Medications Medications (Trade) Dose Ordered Sig/Markus Route PRN Reason Start Time Stop Time Status Last Admin Diagnostic Test (Pha) (Accu-Chek Comfort Curve T) 1 strip ACHS 07/04/25 17:00 07/05/25 10:27 DC 07/05/25 06:53 Insulin Human Regular (InsuLIN R) HS SC 07/04/25 22:00 07/05/25 10:26 DC 07/04/25 21:39 Insulin Human Regular (InsuLIN R) AC SC 07/04/25 17:00 07/05/25 10:27 DC 07/04/25 18:39 Atorvastatin Calcium (Lipitor) 10 mg HS PO 07/04/25 22:00 07/04/25 21:38 Carvedilol (Coreg Tablet) 12.5 mg Q12HR PO 07/04/25 22:00 07/05/25 15:10 DC 07/05/25 08:42 Tamsulosin HCl (Flomax) 0.4 mg QPM PO 07/04/25 18:00 07/04/25 18:33 Multivit/Ca Carb/ B Cmplx/FA/Prenat (Nephro-Radha Tablet) 1 tab DAILY PO 07/05/25 10:00 07/05/25 08:42 Sevelamer HCl (Renagel) 800 mg TIDWM PO 07/04/25 18:00 07/05/25 11:44 Diagnostic Test (Pha) (Accu-Chek Comfort Curve T) 1 strip IQ4HR 07/05/25 12:00 07/05/25 12:06 DC 07/05/25 11:52 Insulin Human Regular (InsuLIN R) IQ4HR SC 07/05/25 12:00 07/05/25 12:06 DC 07/05/25 11:52 Dextrose 50 ml UD PRN IV Blood Sugar LESS THAN 60 07/05/25 10:30 Diagnostic Test (Pha) (Accu-Chek Comfort Curve T) 1 strip ACHS 07/05/25 17:00 Insulin Human Regular (InsuLIN R) ACHS SC 07/05/25 17:00 Nifedipine (Procardia Xl (Time-Release)) 60 mg DAILY PO 07/06/25 10:00 07/05/25 15:10 DC Insulin Glargine (Lantus) 10 units BID@0700,2200 SC 07/05/25 22:00 Carvedilol (Coreg Tablet) 12.5 mg Q12HR PO 07/05/25 22:00 Nifedipine (Procardia Xl (Time-Release)) 60 mg DAILY PO 07/06/25 10:00 Family History: Alzheimer's disease G8 BROTHER Diabetes mellitus G8 FATHER G8 BROTHER G8 SISTER FH: breast cancer G8 MOTHER FH: heart attack G8 FATHER G8 BROTHER Hypertension G8 FATHER G8 BROTHER Review of Systems All 12 item review of systems reviewed with the patient nonsignificant except what is mentioned in the history of present illness H&P Exam Vital Signs/I&O Vital Sign Date Time Temp Pulse Resp B/P (MAP) Pulse Ox O2 Delivery O2 Flow Rate FiO2 07/05/25 13:00 97.9 93 18 125/96 (106) 93 97.9 07/05/25 08:30 Room Air* 0 21 Intake and Output 07/04/25 07/05/25 19:00 07:00 Intake Total 0 ml 0 ml Balance 0 ml 0 ml Intake Oral 0 ml 0 ml Physical Exam Patient lying comfortably in bed Lungs clear to auscultation bilaterally Cardiac exam regular rate and rhythm GI soft nontender was normal Extremity 4+ pitting edema Neuro patient is awake Labs/Diagnostic Data Labs/Diagnostic Data Laboratory Tests Test 07/05/25 11:32 07/05/25 07:32 07/05/25 06:19 07/05/25 05:37 Range/Units POC Glucose 368 H 218 H 79 70-106 mg/dl White Blood Count 9.9 4.4-10.8 10^3/uL Red Blood Count 3.53 L 4.5-5.90 10^6/uL Hemoglobin 11.8 L 13.5-17.5 g/dL Hematocrit 35.4 L 41.0-53.0 % Mean Corpuscular Volume 100.3 H 80.0-100.0 fL Mean Corpuscular Hemoglobin 33.3 H 28.0-32.0 pg Mean Corpuscular Hemoglobin Concent 33.2 32.0-36.0 g/dL Red Cell Distribution Width 16.5 H 11.8-14.3 % Platelet Count 84 L 140-450 10^3/uL Mean Platelet Volume 10.5 6.9-10.8 fL Neutrophils (%) (Auto) 85.1 H 37.0-80.0 % Lymphocytes (%) (Auto) 3.1 L 10.0-50.0 % Monocytes (%) (Auto) 6.5 0.0-12.0 % Eosinophils (%) (Auto) 4.8 0.0-7.0 % Basophils (%) (Auto) 0.5 0.0-2.0 % Neutrophils # (Auto) 8.4 1.6-8.6 10 ^3/uL Lymphocytes # (Auto) 0.3 L 0.4-5.4 10 ^3/uL Monocytes # (Auto) 0.6 0-1.3 10 ^3/uL Eosinophils # (Auto) 0.5 0-0.8 10 ^3/uL Basophils # (Auto) 0.1 0-0.2 10 ^3/uL Nucleated Red Blood Cells 0.1 % Sodium Level 136 136-145 mmol/L Potassium Level 4.7 3.5-5.1 mmol/L Chloride Level 95 L 98-107 mmol/L Carbon Dioxide Level 27 20-31 mmol/L Anion Gap 14 5-15 Blood Urea Nitrogen 55 #H 9-23 mg/dL Creatinine 5.57 H 0.700-1.30 mg/dL Glomerular Filtration Rate Calc 9 >90 mL/min BUN/Creatinine Ratio 9.9 L 10.0-20.0 Serum Glucose 75 # 74-106 mg/dL Calcium Level 8.3 L 8.7-10.4 mg/dL Phosphorus Level 3.2 2.4-5.1 mg/dL Total Bilirubin 0.6 0.2-1.0 mg/dL Aspartate Amino Transferase (AST) 14 13-40 U/L Alanine Aminotransferase (ALT) 53 H 7-40 U/L Alkaline Phosphatase 116 46-116 U/L Total Protein 6.5 5.7-8.2 g/dL Albumin 3.4 3.2-4.8 g/dL Parathyroid Hormone (Intact) 371.7 H 18.4-80.1 pg/mL Test 07/05/25 04:11 07/05/25 03:58 07/04/25 21:13 07/04/25 16:55 Range/Units POC Glucose 135 H 37 *L 286 H 212 H 70-106 mg/dl Test 07/04/25 12:23 Range/Units White Blood Count 9.8 4.4-10.8 10^3/uL Red Blood Count 3.84 L 4.5-5.90 10^6/uL Hemoglobin 12.9 L 13.5-17.5 g/dL Hematocrit 39.3 L 41.0-53.0 % Mean Corpuscular Volume 102.2 H 80.0-100.0 fL Mean Corpuscular Hemoglobin 33.5 H 28.0-32.0 pg Mean Corpuscular Hemoglobin Concent 32.8 32.0-36.0 g/dL Red Cell Distribution Width 16.5 H 11.8-14.3 % Platelet Count 90 L 140-450 10^3/uL Mean Platelet Volume 10.7 6.9-10.8 fL Neutrophils (%) (Auto) 85.0 H 37.0-80.0 % Lymphocytes (%) (Auto) 3.8 L 10.0-50.0 % Monocytes (%) (Auto) 4.6 0.0-12.0 % Eosinophils (%) (Auto) 5.8 0.0-7.0 % Basophils (%) (Auto) 0.8 0.0-2.0 % Neutrophils # (Auto) 8.3 1.6-8.6 10 ^3/uL Lymphocytes # (Auto) 0.4 0.4-5.4 10 ^3/uL Monocytes # (Auto) 0.5 0-1.3 10 ^3/uL Eosinophils # (Auto) 0.6 0-0.8 10 ^3/uL Basophils # (Auto) 0.1 0-0.2 10 ^3/uL Nucleated Red Blood Cells 0.0 % Sodium Level 133 L 136-145 mmol/L Potassium Level 4.1 3.5-5.1 mmol/L Chloride Level 93 L 98-107 mmol/L Carbon Dioxide Level 29 20-31 mmol/L Anion Gap 11 5-15 Blood Urea Nitrogen 43 H 9-23 mg/dL Creatinine 4.51 H 0.700-1.30 mg/dL Glomerular Filtration Rate Calc 12 >90 mL/min BUN/Creatinine Ratio 9.5 L 10.0-20.0 Serum Glucose 222 H 74-106 mg/dL Lactic Acid Level 1.7 0.4-2.0 mmol/L Calcium Level 8.6 L 8.7-10.4 mg/dL B-Type Natriuretic Peptide > 5000.00 0-100 pg/mL Assessment End-stage renal disease on hemodialysis Congestive heart failure exacerbation Diabetes mellitus type 2 Hypertension CVA Anemia of chronic kidney disease Fluid overload Recommendations Resume hemodialysis Epogen 66400 subQ 3 times weekly Strict I&Os Renal diet Resume home medications Insulin sliding scale Blood pressure control We will continue to follow Patient seen and examined by myself. I discussed my plan of care with the patient and primary nurse at the bedside I would like to thank Ricardo for the consult, will follow up Plan discussed with: Patient MARLYS YU MD Jul 05, 2025 14:59
[2025-07-05] MEDS: CARVEDILOL 12.5 MG TAB PO SCH (22:01)
[2025-07-05] MEDS: INSULIN LANTUS (GLARGINE) 1 /0.01ml (100units/ml) SC SCH (22:08)
[2025-07-06] VITALS (11 sets, daily range): BP systolic 79–113; BP diastolic 42–95; PULSE 59–95; RESP 16–20; TEMP 97–98.4; O2SAT 96–99
[2025-07-06] MEDS: HYDROcodone-ACET 5/325MG TAB PO PRN (06:40)
[2025-07-06] MEDS ORDERED: SODIUM CHL 0.9% 1000 ML BAG XX ONE (07:00)
[2025-07-06 07:03] LABS: Hematocrit 34.4 % (41.0-53.0); Hemoglobin 11.5 g/dL (13.5-17.5); Mean Corpuscular Hemoglobin 33.8 pg (28.0-32.0); Mean Corpuscular Volume 100.6 fL (80.0-100.0); Nucleated Red Blood Cells % 0.0 %
[2025-07-06 07:26] LABS: Albumin 3.3 g/dL (3.2-4.8); Anion Gap 14 (5-15); BUN/Creatinine Ratio 11.0 (10.0-20.0); Bilirubin, Total 0.4 mg/dL (0.2-1.0); Carbon Dioxide 25 mmol/L (20-31); Magnesium 2.1 mg/dL (1.6-2.6); Total Protein 6.3 g/dL (5.7-8.2)
[2025-07-06 07:34] LABS: Alanine Aminotransferase 41 U/L (7-40); Alkaline Phosphatase 117 U/L (46-116); Blood Urea Nitrogen 67 mg/dL (9-23); Calcium 8.3 mg/dL (8.7-10.4); Chloride 93 mmol/L (98-107); Glucose 68 mg/dL (74-106); Potassium 5.2 mmol/L (3.5-5.1); Sodium 132 mmol/L (136-145)
[2025-07-06] MEDS ORDERED: ALBUMIN 25% 100 ML IV ONE ×2 (09:30→11:00)
--- NOTE | 2025-07-06 12:08 | DVHPN2 ---
Progress Note Date Seen: Jul 06, 2025 Medical Necessity Reason Pt with a Central, PICC or Fol: No Subjective Patient reports: No new complaints Other Systems: Patient seen and examined by myself today in follow-up Patient examined hemodialysis, blood pressure stable Objective vital signs Vital Sign Date Time Temp Pulse Resp B/P (MAP) Pulse Ox O2 Delivery O2 Flow Rate FiO2 07/06/25 09:00 97.0 65 18 106/62 (77) 98 97.0 07/05/25 20:00 Room Air* 0 21 Total Intake and Output 07/05/25 07/05/25 07/06/25 15:00 23:00 07:00 Intake Total 900 ml 200 ml Balance 900 ml 200 ml medications Current Medications Medications Dose Ordered Sig/Markus Route Start Time Stop Time Status Last Admin Dose Admin Sodium Chloride 10 ml Q8HR IV 07/04/25 14:00 07/06/25 11:33 10 ML Acetaminophen/ Hydrocodone Bitart 1 tab Q4HP PRN PO 07/04/25 13:15 07/06/25 06:40 1 TAB Ondansetron HCl 4 mg Q4HP PRN IV 07/04/25 13:15 Docusate Sodium 100 mg BIDPRN PRN PO 07/04/25 13:15 Acetaminophen 650 mg Q6HP PRN PO 07/04/25 13:15 Atorvastatin Calcium 10 mg HS PO 07/04/25 22:00 07/05/25 22:01 10 MG Clonidine HCl 0.1 mg Q4HP PRN PO 07/04/25 13:15 Tamsulosin HCl 0.4 mg QPM PO 07/04/25 18:00 07/05/25 18:31 0.4 MG Multivit/Ca Carb/ B Cmplx/FA/Prenat 1 tab DAILY PO 07/05/25 10:00 07/06/25 08:41 1 TAB Sevelamer HCl 800 mg TIDWM PO 07/04/25 18:00 07/06/25 11:33 800 MG Nitroglycerin 0.4 mg Q5MINP PRN SL 07/04/25 15:00 Morphine Sulfate 2 mg Q30M PRN IV 07/04/25 15:00 Dextrose 50 ml UD PRN IV 07/05/25 10:30 Diagnostic Test (Pha) 1 strip ACHS 07/05/25 17:00 07/06/25 11:33 1 STRIP Insulin Human Regular ACHS ID 07/05/25 17:00 07/05/25 22:07 15 UNITS Insulin Glargine 10 units BID@0700,2200 ID 07/05/25 22:00 07/05/25 22:08 10 UNITS Carvedilol 12.5 mg Q12HR PO 07/05/25 22:00 07/06/25 08:42 12.5 MG Nifedipine 60 mg DAILY PO 07/06/25 10:00 07/06/25 08:41 60 MG Examination: LUNGS:Normal, CVS:Normal, MSK:Abnormal laboratory and microbiology Laboratory Tests 07/06/25 06:05 Test 07/06/25 06:05 Range/Units Serum Glucose 68 L 74-106 mg/dL Microbiology Date/Time Source Procedure Growth Status 07/04/25 12:43 Blood Blood Culture - Preliminary NO GROWTH AFTER 24 HOURS OF INCUBATION. Resulted Problem List/Assessment/Plan Problem List/Assessment/Plan End-stage renal disease on hemodialysis Congestive heart failure exacerbation Diabetes mellitus type 2 Hypertension CVA Anemia of chronic kidney disease Fluid overload Recommendations There was UF 3-4 L as tolerated Epogen 04457 subQ 3 times weekly Strict I&Os Renal diet Resume home medications Insulin sliding scale Blood pressure control We will continue to follow Plan discussed with: Patient My Orders My Orders Orders - MARLYS YU MD Procedure Category Date Status Time Nifedipine Er PHA 07/06/25 In Process (Procardia Xl 10:00 Hemodialysis Orders ORDERS 07/06/25 Transmitted 07:00 Dialysis Nursing GARRY 07/06/25 In Process Message 07:00 Document Fluid Input GARRY 07/06/25 In Process And Outpu 07:00 Carvedilol Tablet PHA 07/05/25 In Process (Coreg Tablet) 22:00 MARLYS YU MD Jul 06, 2025 12:08
--- NOTE | 2025-07-06 13:36 | DVHPN2 ---
Subjective Status post dialysis Blood pressure is low 85/50 He is still has significant edema in his both of his lower extremities Changes from previous H/P or p: Changes Eyes: No Pain, No Vision change, No Conjunctivae inflammation, No Eyelid inflammation, No Other, No Redness ENT: No Ear pain, No Ear discharge, No Nose pain, No Nose discharge, No Nose congestion, No Mouth pain, No Mouth swelling, No Throat pain, No Throat swelling, No Other Cardiovascular: No Chest Pain, No Palpitations, No Orthopnea, No Paroxysmal Noc. Dyspnea; Edema (Lower extremity); No Lt Headedness, No Other Respiratory: No Cough, No Dry; Shortness of breath; No SOB with excertion, No Wheezing, No Hemoptysis, No Pleuritic Pain, No Sputum, No Other Gastrointestinal: No Nausea, No Vomiting, No Abdominal Pain, No Diarrhea, No Constipation, No Melena, No Hematochezia, No Other Genitourinary: No Dysuria, No Frequency, No Incontinence, No Hematuria, No Retention; Other (On hemodialysis) Musculoskeletal: other (Left arm AV shunt); No neck pain, No shoulder pain, No arm pain, No back pain, No hand pain, No leg pain, No foot pain Skin: No Rash, No Lesions, No Jaundice, No Bruising, No Other Objective Vitals Vital Signs Date Time Temp Pulse Resp B/P (MAP) Pulse Ox O2 Delivery O2 Flow Rate FiO2 07/06/25 12:00 62 07/06/25 09:42 85/50 07/06/25 09:00 97.0 18 98 97.0 07/06/25 08:00 Room Air* 0 21 Intake/Output Intake and Output 07/06/25 07:00 Intake Total 1100 ml Balance 1100 ml Intake Oral 1100 ml # Voids 3 General Appearance: Alert, Oriented X3, mild distress Lungs: Other (B Rhonchi) Cardiovascular: Regular rate, Normal S1, Normal S2 Abdomen: Normal bowel sounds, Soft, No tenderness Extremities: Other (2+ edema B) Medications Current Medications Medications Dose Ordered Sig/Markus Route Start Time Stop Time Status Last Admin Dose Admin Sodium Chloride 10 ml Q8HR IV 07/04/25 14:00 07/06/25 11:33 10 ML Acetaminophen/ Hydrocodone Bitart 1 tab Q4HP PRN PO 07/04/25 13:15 07/06/25 06:40 1 TAB Ondansetron HCl 4 mg Q4HP PRN IV 07/04/25 13:15 Docusate Sodium 100 mg BIDPRN PRN PO 07/04/25 13:15 Acetaminophen 650 mg Q6HP PRN PO 07/04/25 13:15 Atorvastatin Calcium 10 mg HS PO 07/04/25 22:00 07/05/25 22:01 10 MG Clonidine HCl 0.1 mg Q4HP PRN PO 07/04/25 13:15 Tamsulosin HCl 0.4 mg QPM PO 07/04/25 18:00 07/05/25 18:31 0.4 MG Multivit/Ca Carb/ B Cmplx/FA/Prenat 1 tab DAILY PO 07/05/25 10:00 07/06/25 08:41 1 TAB Sevelamer HCl 800 mg TIDWM PO 07/04/25 18:00 07/06/25 11:33 800 MG Nitroglycerin 0.4 mg Q5MINP PRN SL 07/04/25 15:00 Morphine Sulfate 2 mg Q30M PRN IV 07/04/25 15:00 Dextrose 50 ml UD PRN IV 07/05/25 10:30 Diagnostic Test (Pha) 1 strip ACHS 07/05/25 17:00 07/06/25 11:33 1 STRIP Insulin Human Regular ACHS SC 07/05/25 17:00 07/05/25 22:07 15 UNITS Insulin Glargine 10 units BID@0700,2200 [place] 07/05/25 22:00 07/05/25 22:08 10 UNITS Carvedilol 12.5 mg Q12HR PO 07/05/25 22:00 07/06/25 08:42 12.5 MG Nifedipine 60 mg DAILY PO 07/06/25 10:00 07/06/25 08:41 60 MG Laboratory Results Laboratory Tests 07/06/25 06:05 Chemistry Test 07/06/25 06:05 Albumin 3.3 g/dL (3.2-4.8) Calcium Level 8.3 mg/dL (8.7-10.4) L Magnesium Level 2.1 mg/dL (1.6-2.6) Total Protein 6.3 g/dL (5.7-8.2) LFT Test 07/06/25 06:05 Alanine Aminotransferase (ALT) 41 U/L (7-40) H Alkaline Phosphatase 117 U/L (46-116) H Aspartate Amino Transferase (AST) < 8 U/L (13-40) L Total Bilirubin 0.4 mg/dL (0.2-1.0) Microbiology Microbiology Date/Time Source Procedure Growth Status 07/04/25 12:43 Blood Blood Culture - Preliminary NO GROWTH AFTER 48 HOURS OF INCUBATION. Resulted Assessment/Plan Assessment/Plan Acute hypoxic respiratory failure CHF, acute on chronic, ESRD Old CVA Mixed hyperlipidemia HTN Kidney CA PLAN: Nephrology consult O2 prn Coreg Lantus Echo 07/06/2025: Status post dialysis this morning Hyperkalemia: Potassium is 5.2 Hyponatremia, sodium is 132 Hypotension Albumin was given during dialysis Lipitor Coreg Hold blood pressure medications today Monitor in the hospital 1 more day due to hypotension Check his potassium again in the morning Plan discussed with: Patient Date of Service: Jul 06, 2025 Billing Provider: ABDIRIZAK WILLS MD Common Visit Codes: NOT BILLABLE ABDIRIZAK WILLS MD Jul 06, 2025 13:36
[2025-07-07] VITALS (12 sets, daily range): BP systolic 91–155; BP diastolic 56–116; PULSE 66–91; RESP 18–21; TEMP 98–98.9; O2SAT 90–100
[2025-07-07 06:59] LABS: Mean Corpuscular Hemoglobin 33.5 pg (28.0-32.0)
[2025-07-07 07:01] LABS: Hematocrit 37.7 % (41.0-53.0); Hemoglobin 12.1 g/dL (13.5-17.5); Mean Corpuscular Volume 104.3 fL (80.0-100.0); Nucleated Red Blood Cells % 0.1 %
[2025-07-07 07:16] LABS: Alanine Aminotransferase 36 U/L (7-40); Albumin 3.9 g/dL (3.2-4.8); Alkaline Phosphatase 107 U/L (46-116); Anion Gap 16 (5-15); BUN/Creatinine Ratio 11.9 (10.0-20.0); Bilirubin, Total 0.5 mg/dL (0.2-1.0); Carbon Dioxide 24 mmol/L (20-31); Magnesium 2.1 mg/dL (1.6-2.6); Total Protein 6.6 g/dL (5.7-8.2)
[2025-07-07 07:27] LABS: Blood Urea Nitrogen 70 mg/dL (9-23); Calcium 8.7 mg/dL (8.7-10.4); Chloride 93 mmol/L (98-107); Sodium 133 mmol/L (136-145)
[2025-07-07 07:29] LABS: Glucose 32 mg/dL (74-106); Potassium 6.3 mmol/L (3.5-5.1)
[2025-07-07] MEDS: DEXTROSE (50%) 50ML SYRG IV PRN (08:08)
[2025-07-07] MEDS: ALBUTEROL SULF 2.5 MG/0.5ML(0.5%) NEB SOLN NEB STA (08:25)
[2025-07-07] MEDS: SODIUM ZIRCONIUM CYCL 10 GM PAK PO ONE (08:45)
[2025-07-07] MEDS: InsuLIN REG 1unit/0.01ml Soln (100units/ml) IV ONE ×2 (09:08→18:36)
[2025-07-07] MEDS: CALCIUM GLUC 1,000mg/50ml-NS 50 ML IV ONE (09:10)
--- NOTE | 2025-07-07 11:46 | DVHPN2 ---
Progress Note Date Seen: Jul 07, 2025 Medical Necessity Reason Pt with a Central, PICC or Fol: No Subjective Patient reports: No new complaints Other Systems: Patient seen and examined by myself today in follow-up Objective vital signs Vital Sign Date Time Temp Pulse Resp B/P (MAP) Pulse Ox O2 Delivery O2 Flow Rate FiO2 07/07/25 08:35 98.9 89 20 155/116 (129) 98 98.9 07/07/25 08:25 Room Air* 0 21 Total Intake and Output 07/06/25 07/06/25 07/07/25 15:00 23:00 07:00 Intake Total 480 ml 400 ml Output Total 120 ml 200 ml Balance 360 ml 200 ml medications Current Medications Medications Dose Ordered Sig/Markus Route Start Time Stop Time Status Last Admin Dose Admin Sodium Chloride 10 ml Q8HR IV 07/04/25 14:00 07/07/25 06:00 10 ML Acetaminophen/ Hydrocodone Bitart 1 tab Q4HP PRN PO 07/04/25 13:15 07/07/25 05:40 1 TAB Ondansetron HCl 4 mg Q4HP PRN IV 07/04/25 13:15 Docusate Sodium 100 mg BIDPRN PRN PO 07/04/25 13:15 Acetaminophen 650 mg Q6HP PRN PO 07/04/25 13:15 Atorvastatin Calcium 10 mg HS PO 07/04/25 22:00 07/06/25 22:20 10 MG Clonidine HCl 0.1 mg Q4HP PRN PO 07/04/25 13:15 Tamsulosin HCl 0.4 mg QPM PO 07/04/25 18:00 07/06/25 17:09 0.4 MG Multivit/Ca Carb/ B Cmplx/FA/Prenat 1 tab DAILY PO 07/05/25 10:00 07/06/25 08:41 1 TAB Sevelamer HCl 800 mg TIDWM PO 07/04/25 18:00 07/06/25 17:09 800 MG Nitroglycerin 0.4 mg Q5MINP PRN SL 07/04/25 15:00 Morphine Sulfate 2 mg Q30M PRN IV 07/04/25 15:00 Dextrose 50 ml UD PRN IV 07/05/25 10:30 07/07/25 09:01 50 ML Diagnostic Test (Pha) 1 strip ACHS 07/05/25 17:00 07/07/25 11:26 1 STRIP Insulin Human Regular ACHS SC 07/05/25 17:00 07/06/25 22:26 12 UNITS Insulin Glargine 10 units BID@0700,2200 [place] 07/05/25 22:00 07/06/25 22:27 10 UNITS Carvedilol 12.5 mg Q12HR PO 07/05/25 22:00 07/06/25 08:42 12.5 MG Nifedipine 60 mg DAILY PO 07/06/25 10:00 07/06/25 08:41 60 MG Examination: LUNGS:Normal, CVS:Normal, MSK:Abnormal laboratory and microbiology Laboratory Tests 07/07/25 05:59 Test 07/07/25 05:59 Range/Units Serum Glucose 32 *L 74-106 mg/dL Microbiology Date/Time Source Procedure Growth Status 07/04/25 12:43 Blood Blood Culture - Preliminary NO GROWTH AFTER 48 HOURS OF INCUBATION. Resulted Problem List/Assessment/Plan Problem List/Assessment/Plan End-stage renal disease on hemodialysis Congestive heart failure exacerbation Diabetes mellitus type 2 Hypertension CVA Anemia of chronic kidney disease Hyperkalemia due to dietary indiscretion Recommendations Emergent treatment for hyperkalemia Epogen 80034 subQ 3 times weekly Strict I&Os Change diet to Renal diet Resume home medications Insulin sliding scale Blood pressure control We will continue to follow Plan discussed with: Patient My Orders My Orders Orders - MARLYS YU MD Procedure Category Date Status Time Potassium LAB 07/07/25 Transmitted 15:43 Insulin R (Human) PHA 07/07/25 Logged (Insulin R) 11:45 Dextrose 50% Syringe PHA 07/07/25 Logged 11:45 Albuterol Medneb PHA 07/07/25 Logged (Ventolin Medneb) 11:45 Sodium Bicarb PHA 07/07/25 Logged 50meq/50ml Syr 11:45 Furosemide Injection PHA 07/07/25 Logged (Lasix Injection) 11:45 Sodium Zirconium PHA 07/07/25 Logged Cyclosilicate 14:00 Renal Specific DIET 07/07/25 Transmitted Diet(Renal) Lunch MARLYS YU MD Jul 07, 2025 11:46
[2025-07-07] MEDS: ALBUTEROL SULF 2.5 MG/0.5ML(0.5%) NEB SOLN NEB ONE (12:30)
[2025-07-07] MEDS: SODIUM ZIRCONIUM CYCL 10 GM PAK PO SCH (13:09)
--- NOTE | 2025-07-07 17:50 | DVHPN2 ---
Subjective I am assuming the care of the patient from today onwards. Plan of care discussed with the bedside RN Swetha. Patient's blood sugars were dropping currently is more awake alert and oriented. Short-acting insulin sliding scale has been discontinued. Changes from previous H/P or p: No Changes Eyes: No Pain, No Vision change, No Conjunctivae inflammation, No Eyelid inflammation, No Other, No Redness ENT: No Ear pain, No Ear discharge, No Nose pain, No Nose discharge, No Nose congestion, No Mouth pain, No Mouth swelling, No Throat pain, No Throat swelling, No Other Cardiovascular: No Chest Pain, No Palpitations, No Orthopnea, No Paroxysmal Noc. Dyspnea; Edema (Lower extremity); No Lt Headedness, No Other Respiratory: No Cough, No Dry; Shortness of breath; No SOB with excertion, No Wheezing, No Hemoptysis, No Pleuritic Pain, No Sputum, No Other Gastrointestinal: No Nausea, No Vomiting, No Abdominal Pain, No Diarrhea, No Constipation, No Melena, No Hematochezia, No Other Genitourinary: No Dysuria, No Frequency, No Incontinence, No Hematuria, No Retention; Other (On hemodialysis) Musculoskeletal: other (Left arm AV shunt); No neck pain, No shoulder pain, No arm pain, No back pain, No hand pain, No leg pain, No foot pain Skin: No Rash, No Lesions, No Jaundice, No Bruising, No Other Objective Vitals Vital Signs Date Time Temp Pulse Resp B/P (MAP) Pulse Ox O2 Delivery O2 Flow Rate FiO2 07/07/25 16:53 98.1 86 19 147/79 (101) 96 98.1 07/07/25 12:30 Room Air* 0 21 Intake/Output Intake and Output 07/07/25 07:00 Intake Total 880 ml Output Total 320 ml Balance 560 ml Intake Oral 880 ml Output Urine Total 320 ml Exam HEENT pupils are reactive Neck is supple CV is S1-S2 regular rate and rhythm Diminished breath sounds bases GI positive bowel sound Extremity 2+ pitting edema [employer] COACH following commands. General Appearance: Alert, Oriented X3, mild distress Lungs: Other (B Rhonchi) Cardiovascular: Regular rate, Normal S1, Normal S2 Abdomen: Normal bowel sounds, Soft, No tenderness Extremities: Other (2+ edema B) Medications Current Medications Medications Dose Ordered Sig/Markus Route Start Time Stop Time Status Last Admin Dose Admin Sodium Chloride 10 ml Q8HR IV 07/04/25 14:00 07/07/25 12:06 10 ML Acetaminophen/ Hydrocodone Bitart 1 tab Q4HP PRN PO 07/04/25 13:15 07/07/25 05:40 1 TAB Ondansetron HCl 4 mg Q4HP PRN IV 07/04/25 13:15 Docusate Sodium 100 mg BIDPRN PRN PO 07/04/25 13:15 Acetaminophen 650 mg Q6HP PRN PO 07/04/25 13:15 Atorvastatin Calcium 10 mg HS PO 07/04/25 22:00 07/06/25 22:20 10 MG Clonidine HCl 0.1 mg Q4HP PRN PO 07/04/25 13:15 Tamsulosin HCl 0.4 mg QPM PO 07/04/25 18:00 07/07/25 17:37 0.4 MG Multivit/Ca Carb/ B Cmplx/FA/Prenat 1 tab DAILY PO 07/05/25 10:00 07/06/25 08:41 1 TAB Sevelamer HCl 800 mg TIDWM PO 07/04/25 18:00 07/07/25 17:37 800 MG Nitroglycerin 0.4 mg Q5MINP PRN SL 07/04/25 15:00 Morphine Sulfate 2 mg Q30M PRN IV 07/04/25 15:00 Dextrose 50 ml UD PRN IV 07/05/25 10:30 07/07/25 11:59 50 ML Diagnostic Test (Pha) 1 strip ACHS 07/05/25 17:00 07/07/25 11:26 1 STRIP Insulin Glargine 10 units BID@0700,2200 [place] 07/05/25 22:00 07/06/25 22:27 10 UNITS Carvedilol 12.5 mg Q12HR PO 07/05/25 22:00 07/06/25 08:42 12.5 MG Nifedipine 60 mg DAILY PO 07/06/25 10:00 07/06/25 08:41 60 MG Zirconium Oxide 10 gm TID PO 07/07/25 14:00 07/09/25 06:01 07/07/25 13:09 10 GM Insulin Human Regular ACHS SC 07/07/25 22:00 UNV Laboratory Results Laboratory Tests 07/07/25 05:59 Chemistry Test 07/07/25 05:59 Albumin 3.9 g/dL (3.2-4.8) Calcium Level 8.7 mg/dL (8.7-10.4) Magnesium Level 2.1 mg/dL (1.6-2.6) Total Protein 6.6 g/dL (5.7-8.2) LFT Test 07/07/25 05:59 Alanine Aminotransferase (ALT) 36 U/L (7-40) Alkaline Phosphatase 107 U/L (46-116) Aspartate Amino Transferase (AST) 18 U/L (13-40) Total Bilirubin 0.5 mg/dL (0.2-1.0) Microbiology Microbiology Date/Time Source Procedure Growth Status 07/04/25 12:43 Blood Blood Culture - Preliminary NO GROWTH AFTER 72 HOURS OF INCUBATION. Resulted Assessment/Plan Assessment/Plan 84-year-old male with a known history of congestive heart failure, end-stage renal disease on hemodialysis, hypertension, dyslipidemia, known CAD presented to the hospital with the increasing shortness a breath found to have 1. Acute hypoxic respiratory failure suspect fluid overload 2. Fluid overload with underlying end-stage renal disease on hemodialysis 3. Hyperkalemia 4. Dyslipidemia 5. Hypoglycemia in the setting of insulin-dependent diabetes mellitus type 2 6. History of CVA -discontinue short-acting insulin sliding scale, continue long-acting insulin, Close monitoring-hemodialysis per Plan discussed with: Patient, Other (Patient's bedside MAYRA Posada.) My Orders Orders - JONNY VIERA MD Procedure Category Date Status Time Insulin R (Human) PHA 07/07/25 Logged (Insulin R) 22:00 Date of Service: Jul 07, 2025 Billing Provider: JONNY VIERA MD Common Visit Codes: [id number] INP/OBS CARE(HIGH) JONNY VIERA MD Jul 07, 2025 17:50
[2025-07-07] MEDS: DEXTROSE (50%) 50ML SYRG IV ONE (18:38)
[2025-07-07] MEDS: FUROSEMIDE 40 MG/4 ML VIAL IV ONE (18:45)
[2025-07-07] MEDS: SODIUM BICARB 8.4% 50Meq/50ml SYR INJ IV ONE (18:49)
[2025-07-07] MEDS: InsuLIN REG 1unit/0.01ml Soln (100units/ml) SC SCH (21:00)
[2025-07-08] VITALS (9 sets, daily range): BP systolic 100–129; BP diastolic 58–91; PULSE 66–92; RESP 18–19; TEMP 97.6–98.4; O2SAT 87–100
--- NOTE | 2025-07-08 17:26 | DVHPN2 ---
Subjective Patient is more awake alert today. Changes from previous H/P or p: No Changes Eyes: No Pain, No Vision change, No Conjunctivae inflammation, No Eyelid inflammation, No Other, No Redness ENT: No Ear pain, No Ear discharge, No Nose pain, No Nose discharge, No Nose congestion, No Mouth pain, No Mouth swelling, No Throat pain, No Throat swelling, No Other Cardiovascular: No Chest Pain, No Palpitations, No Orthopnea, No Paroxysmal Noc. Dyspnea; Edema (Lower extremity); No Lt Headedness, No Other Respiratory: No Cough, No Dry; Shortness of breath; No SOB with excertion, No Wheezing, No Hemoptysis, No Pleuritic Pain, No Sputum, No Other Gastrointestinal: No Nausea, No Vomiting, No Abdominal Pain, No Diarrhea, No Constipation, No Melena, No Hematochezia, No Other Genitourinary: No Dysuria, No Frequency, No Incontinence, No Hematuria, No Retention; Other (On hemodialysis) Musculoskeletal: other (Left arm AV shunt); No neck pain, No shoulder pain, No arm pain, No back pain, No hand pain, No leg pain, No foot pain Skin: No Rash, No Lesions, No Jaundice, No Bruising, No Other Objective Vitals Vital Signs Date Time Temp Pulse Resp B/P (MAP) Pulse Ox O2 Delivery O2 Flow Rate FiO2 07/08/25 17:00 97.7 77 18 100/67 (78) 99 97.7 07/08/25 10:00 Nasal Cannula 2.0 07/08/25 10:00 32 Intake/Output Intake and Output 07/08/25 07:00 Intake Total 730 ml Balance 730 ml Intake Oral 680 ml IV Total 50 ml # Voids 1 Exam HEENT pupils are reactive Neck is supple CV is S1-S2 regular rate and rhythm Diminished breath sounds bases GI positive bowel sound Extremity 2+ pitting edema SHIP MATE following commands. General Appearance: Alert, Oriented X3, mild distress Lungs: Other (B Rhonchi) Cardiovascular: Regular rate, Normal S1, Normal S2 Abdomen: Normal bowel sounds, Soft, No tenderness Extremities: Other (2+ edema B) Medications Current Medications Medications Dose Ordered Sig/Markus Route Start Time Stop Time Status Last Admin Dose Admin Sodium Chloride 10 ml Q8HR IV 07/04/25 14:00 07/08/25 14:00 10 ML Acetaminophen/ Hydrocodone Bitart 1 tab Q4HP PRN PO 07/04/25 13:15 07/07/25 05:40 1 TAB Ondansetron HCl 4 mg Q4HP PRN IV 07/04/25 13:15 Docusate Sodium 100 mg BIDPRN PRN PO 07/04/25 13:15 Acetaminophen 650 mg Q6HP PRN PO 07/04/25 13:15 Atorvastatin Calcium 10 mg HS PO 07/04/25 22:00 07/07/25 21:40 10 MG Clonidine HCl 0.1 mg Q4HP PRN PO 07/04/25 13:15 Tamsulosin HCl 0.4 mg QPM PO 07/04/25 18:00 07/07/25 17:37 0.4 MG Multivit/Ca Carb/ B Cmplx/FA/Prenat 1 tab DAILY PO 07/05/25 10:00 07/08/25 10:46 1 TAB Sevelamer HCl 800 mg TIDWM PO 07/04/25 18:00 07/08/25 12:20 800 MG Nitroglycerin 0.4 mg Q5MINP PRN SL 07/04/25 15:00 Morphine Sulfate 2 mg Q30M PRN IV 07/04/25 15:00 Dextrose 50 ml UD PRN IV 07/05/25 10:30 07/07/25 11:59 50 ML Diagnostic Test (Pha) 1 strip ACHS 07/05/25 17:00 07/08/25 17:21 1 STRIP Insulin Glargine 10 units BID@0700,2200 [place] 07/05/25 22:00 07/07/25 21:46 10 UNITS Carvedilol 12.5 mg Q12HR PO 07/05/25 22:00 07/08/25 10:46 12.5 MG Zirconium Oxide 10 gm TID PO 07/07/25 14:00 07/09/25 06:01 07/08/25 15:41 10 GM Insulin Human Regular ACHS [place] 07/07/25 22:00 07/08/25 11:30 6 UNITS Nifedipine 60 mg DAILY PO 07/09/25 10:00 Laboratory Results Laboratory Tests 07/07/25 05:59 07/07/25 16:27 Microbiology Microbiology Date/Time Source Procedure Growth Status 07/04/25 12:43 Blood Blood Culture - Preliminary NO GROWTH AFTER 72 HOURS OF INCUBATION. Resulted Assessment/Plan Assessment/Plan 84-year-old male with a known history of congestive heart failure, end-stage renal disease on hemodialysis, hypertension, dyslipidemia, known CAD presented to the hospital with the increasing shortness a breath found to have 1. Acute hypoxic respiratory failure suspect fluid overload 2. Fluid overload with underlying end-stage renal disease on hemodialysis 3. Hyperkalemia 4. Dyslipidemia 5. Hypoglycemia in the setting of insulin-dependent diabetes mellitus type 2 6. History of CVA -discontinue short-acting insulin sliding scale, continue long-acting insulin, Close monitoring-hemodialysis per Plan discussed with: Patient My Orders Orders - OJNNY VIERA MD Procedure Category Date Status Time Insulin R (Human) PHA 07/07/25 In Process (Insulin R) 22:00 Date of Service: Jul 08, 2025 Billing Provider: JONNY VIERA MD Common Visit Codes: [id number] INP/OBS CARE(HIGH) JONNY VIERA MD Jul 08, 2025 17:26
[2025-07-09] VITALS (9 sets, daily range): BP systolic 103–137; BP diastolic 68–93; PULSE 71–90; RESP 14–18; TEMP 97.6–98.3; O2SAT 93–100
[2025-07-09] MEDS ORDERED: SODIUM CHL 0.9% 1000 ML BAG XX ONE (07:00)
--- NOTE | 2025-07-09 11:01 | DVHPN2 ---
Subjective Denies any complaints has 2+ edema B Changes from previous H/P or p: Changes Eyes: No Pain, No Vision change, No Conjunctivae inflammation, No Eyelid inflammation, No Other, No Redness ENT: No Ear pain, No Ear discharge, No Nose pain, No Nose discharge, No Nose congestion, No Mouth pain, No Mouth swelling, No Throat pain, No Throat swelling, No Other Cardiovascular: No Chest Pain, No Palpitations, No Orthopnea, No Paroxysmal Noc. Dyspnea; Edema (Lower extremity); No Lt Headedness, No Other Respiratory: No Cough, No Dry; Shortness of breath; No SOB with excertion, No Wheezing, No Hemoptysis, No Pleuritic Pain, No Sputum, No Other Gastrointestinal: No Nausea, No Vomiting, No Abdominal Pain, No Diarrhea, No Constipation, No Melena, No Hematochezia, No Other Genitourinary: No Dysuria, No Frequency, No Incontinence, No Hematuria, No Retention; Other (On hemodialysis) Musculoskeletal: other (Left arm AV shunt); No neck pain, No shoulder pain, No arm pain, No back pain, No hand pain, No leg pain, No foot pain Skin: No Rash, No Lesions, No Jaundice, No Bruising, No Other Objective Vitals Vital Signs Date Time Temp Pulse Resp B/P (MAP) Pulse Ox O2 Delivery O2 Flow Rate FiO2 07/09/25 10:07 97 115/91 07/09/25 10:00 98 Nasal Cannula* 2 28 07/09/25 09:05 16 07/09/25 04:54 98.0 98.0 Intake/Output Intake and Output 07/09/25 07:00 Intake Total 1810 ml Output Total 1 ml Balance 1809 ml Intake Oral 1810 ml Stool Total 1 ml # Voids 2 # Bowel Movements 2 General Appearance: Alert, Oriented X3, mild distress Lungs: Other (B Rhonchi) Cardiovascular: Regular rate, Normal S1, Normal S2 Abdomen: Normal bowel sounds, Soft, No tenderness Extremities: Other (2+ edema B) Medications Current Medications Medications Dose Ordered Sig/Markus Route Start Time Stop Time Status Last Admin Dose Admin Sodium Chloride 10 ml Q8HR IV 07/04/25 14:00 07/09/25 06:00 10 ML Acetaminophen/ Hydrocodone Bitart 1 tab Q4HP PRN PO 07/04/25 13:15 07/07/25 05:40 1 TAB Ondansetron HCl 4 mg Q4HP PRN IV 07/04/25 13:15 Docusate Sodium 100 mg BIDPRN PRN PO 07/04/25 13:15 Acetaminophen 650 mg Q6HP PRN PO 07/04/25 13:15 Atorvastatin Calcium 10 mg HS PO 07/04/25 22:00 07/08/25 22:55 10 MG Clonidine HCl 0.1 mg Q4HP PRN PO 07/04/25 13:15 Tamsulosin HCl 0.4 mg QPM PO 07/04/25 18:00 07/07/25 17:37 0.4 MG Multivit/Ca Carb/ B Cmplx/FA/Prenat 1 tab DAILY PO 07/05/25 10:00 07/09/25 10:06 1 TAB Sevelamer HCl 800 mg TIDWM PO 07/04/25 18:00 07/09/25 10:06 800 MG Nitroglycerin 0.4 mg Q5MINP PRN SL 07/04/25 15:00 Morphine Sulfate 2 mg Q30M PRN IV 07/04/25 15:00 Dextrose 50 ml UD PRN IV 07/05/25 10:30 07/07/25 11:59 50 ML Diagnostic Test (Pha) 1 strip ACHS 07/05/25 17:00 07/09/25 06:40 1 STRIP Insulin Glargine 10 units BID@0700,2200 [place] 07/05/25 22:00 07/08/25 22:59 10 UNITS Carvedilol 12.5 mg Q12HR PO 07/05/25 22:00 07/09/25 10:03 12.5 MG Insulin Human Regular ACHS [place] 07/07/25 22:00 07/08/25 22:58 3 UNITS Nifedipine 60 mg DAILY PO 07/09/25 10:00 Laboratory Results Laboratory Tests 07/07/25 05:59 07/07/25 16:27 Microbiology Microbiology Date/Time Source Procedure Growth Status 07/04/25 12:43 Blood Blood Culture - Preliminary NO GROWTH AFTER 72 HOURS OF INCUBATION. Resulted Assessment/Plan Assessment/Plan Acute hypoxic respiratory failure CHF, acute on chronic, ESRD Old CVA Mixed hyperlipidemia HTN Kidney CA PLAN: Nephrology consult O2 prn Tonio Christianson Echo 07/06/2025: Status post dialysis this morning Hyperkalemia: Potassium is 5.2 Hyponatremia, sodium is 132 Hypotension Albumin was given during dialysis Lipitor Coreg Hold blood pressure medications today Monitor in the hospital 1 more day due to hypotension Check his potassium again in the morning 07/09/25: Physical therapy HD per nephrology Check K+ BP better Out of bed prn DC planning for tomorrow Plan discussed with: Patient, Daughter My Orders Orders - ABDIRIZAK WILLS MD Procedure Category Date Status Time Basic Metabolic Panel LAB 07/09/25 Logged 10:17 Date of Service: Jul 09, 2025 Billing Provider: ABDIRIZAK WILLS MD Common Visit Codes: NOT BILLABLE ABDIRIZAK WILLS MD Jul 09, 2025 11:01
[2025-07-09 11:22] LABS: Potassium 5.0 mmol/L (3.5-5.1)
[2025-07-09 11:23] LABS: Anion Gap 15 (5-15); Carbon Dioxide 27 mmol/L (20-31)
[2025-07-09 11:28] LABS: BUN/Creatinine Ratio 12.6 (10.0-20.0); Glucose 93 mg/dL (74-106)
[2025-07-09 11:36] LABS: Calcium 8.6 mg/dL (8.7-10.4); Chloride 90 mmol/L (98-107); Sodium 132 mmol/L (136-145)
[2025-07-09 11:38] LABS: Blood Urea Nitrogen 89 mg/dL (9-23)
[2025-07-09] MEDS: INSULIN LANTUS (GLARGINE) 1 /0.01ml (100units/ml) SC SCH (21:48)
[2025-07-10] VITALS (9 sets, daily range): BP systolic 116–134; BP diastolic 76–95; PULSE 81–95; RESP 18–22; TEMP 97.5–98.3; O2SAT 91–99
[2025-07-10 07:17] LABS: Hematocrit 34.5 % (41.0-53.0); Hemoglobin 11.6 g/dL (13.5-17.5); Mean Corpuscular Hemoglobin 33.4 pg (28.0-32.0); Mean Corpuscular Volume 99.8 fL (80.0-100.0); Nucleated Red Blood Cells % 0.0 %
[2025-07-10 07:39] LABS: Alanine Aminotransferase 22 U/L (7-40); Alkaline Phosphatase 100 U/L (46-116); Anion Gap 15 (5-15); Calcium 8.9 mg/dL (8.7-10.4); Carbon Dioxide 26 mmol/L (20-31)
[2025-07-10 07:40] LABS: Albumin 3.6 g/dL (3.2-4.8)
[2025-07-10 07:41] LABS: Chloride 89 mmol/L (98-107); Potassium 5.4 mmol/L (3.5-5.1); Sodium 130 mmol/L (136-145)
[2025-07-10 07:42] LABS: BUN/Creatinine Ratio 13.1 (10.0-20.0); Glucose 65 mg/dL (74-106); Magnesium 2.1 mg/dL (1.6-2.6); Total Protein 6.5 g/dL (5.7-8.2)
[2025-07-10 07:44] LABS: Bilirubin, Total 0.4 mg/dL (0.2-1.0)
[2025-07-10 07:45] LABS: Blood Urea Nitrogen 100 mg/dL (9-23)
--- NOTE | 2025-07-10 12:03 | DVHPN2 ---
Progress Note - Dictate Date Seen: Jul 10, 2025 Medical Necessity Reason Pt with a Central, PICC or Fol: No Subjective Patient awake, slightly confused, patient's sitter at bedside, patient's daughter and patient's son also at bedside. vital signs Vital Sign Date Time Temp Pulse Resp B/P (MAP) Pulse Ox O2 Delivery O2 Flow Rate FiO2 07/10/25 10:00 98 Nasal Cannula 2.0 07/10/25 10:00 28 07/10/25 09:00 97.5 93 19 120/76 (91) 97.5 Total Intake and Output 07/09/25 07/09/25 07/10/25 14:59 22:59 06:59 Intake Total 650 ml 550 ml Output Total 150 ml Balance 650 ml 400 ml medications Current Medications Medications Dose Ordered Sig/Markus Route Start Time Stop Time Status Last Admin Dose Admin Sodium Chloride 10 ml Q8HR IV 07/04/25 14:00 07/10/25 06:44 10 ML Acetaminophen/ Hydrocodone Bitart 1 tab Q4HP PRN PO 07/04/25 13:15 07/07/25 05:40 1 TAB Ondansetron HCl 4 mg Q4HP PRN IV 07/04/25 13:15 Docusate Sodium 100 mg BIDPRN PRN PO 07/04/25 13:15 Acetaminophen 650 mg Q6HP PRN PO 07/04/25 13:15 Atorvastatin Calcium 10 mg HS PO 07/04/25 22:00 07/09/25 21:28 10 MG Clonidine HCl 0.1 mg Q4HP PRN PO 07/04/25 13:15 Tamsulosin HCl 0.4 mg QPM PO 07/04/25 18:00 07/09/25 17:19 0.4 MG Multivit/Ca Carb/ B Cmplx/FA/Prenat 1 tab DAILY PO 07/05/25 10:00 07/10/25 10:57 1 TAB Sevelamer HCl 800 mg TIDWM PO 07/04/25 18:00 07/10/25 08:07 800 MG Nitroglycerin 0.4 mg Q5MINP PRN SL 07/04/25 15:00 Morphine Sulfate 2 mg Q30M PRN IV 07/04/25 15:00 Dextrose 50 ml UD PRN IV 07/05/25 10:30 07/07/25 11:59 50 ML Diagnostic Test (Pha) 1 strip ACHS 07/05/25 17:00 07/10/25 06:44 1 STRIP Carvedilol 12.5 mg Q12HR PO 07/05/25 22:00 07/09/25 10:03 12.5 MG Insulin Human Regular ACHS SC 07/07/25 22:00 07/09/25 21:49 4 UNITS Nifedipine 60 mg DAILY PO 07/09/25 10:00 Insulin Glargine 5 units BID@0700,2200 [place] 07/09/25 22:00 07/10/25 06:44 5 UNITS objective Gen: nad, elderly male heent: nc/at, mmm lungs: cta anteriorly cvs: no rub abd: soft, bowel sounds audible ext: + edema laboratory and microbiology Laboratory Tests 07/10/25 06:19 Test 07/10/25 06:19 Range/Units Serum Glucose 65 L 74-106 mg/dL Assessment/Plan Problem List/Assessment/Plan End-stage renal disease on hemodialysis Congestive heart failure exacerbation Diabetes mellitus type 2 Hypertension CVA Anemia of chronic kidney disease Hyperkalemia due to dietary indiscretion Recommendations - I had an extensive discussion with Mr. Kendall's son, his daughter regarding current clinical state, patient's continuing Discoloration that he will have dialysis tomorrow and not acknowledge that he needs his treatment today. Plan will be to attempt hemodialysis again tomorrow and should Mr. Kendall refused, family expressed interest In not pursuing dialysis and transitioning to palliation/hospice. Dietary Evaluation Review Comments: Nutrition Recommendation: 1) CCHO 60gm + renal standrad diet 2) Monitor PO intake, lab values, weight trend, and I/O Expected Outcomes/Goals: Intake to meet >75% estimated needs Lab values to improve FU 3-5 days Plan discussed with: Daughter, Son NEELIMA OWENS MD Jul 10, 2025 12:03
--- NOTE | 2025-07-10 15:05 | DVHPN2 ---
Subjective No complaints Changes from previous H/P or p: Changes Eyes: No Pain, No Vision change, No Conjunctivae inflammation, No Eyelid inflammation, No Other, No Redness ENT: No Ear pain, No Ear discharge, No Nose pain, No Nose discharge, No Nose congestion, No Mouth pain, No Mouth swelling, No Throat pain, No Throat swelling, No Other Cardiovascular: No Chest Pain, No Palpitations, No Orthopnea, No Paroxysmal Noc. Dyspnea; Edema (Lower extremity); No Lt Headedness, No Other Respiratory: No Cough, No Dry; Shortness of breath; No SOB with excertion, No Wheezing, No Hemoptysis, No Pleuritic Pain, No Sputum, No Other Gastrointestinal: No Nausea, No Vomiting, No Abdominal Pain, No Diarrhea, No Constipation, No Melena, No Hematochezia, No Other Genitourinary: No Dysuria, No Frequency, No Incontinence, No Hematuria, No Retention; Other (On hemodialysis) Musculoskeletal: other (Left arm AV shunt); No neck pain, No shoulder pain, No arm pain, No back pain, No hand pain, No leg pain, No foot pain Skin: No Rash, No Lesions, No Jaundice, No Bruising, No Other Objective Vitals Vital Signs Date Time Temp Pulse Resp B/P (MAP) Pulse Ox O2 Delivery O2 Flow Rate FiO2 07/10/25 12:30 97.6 81 19 129/84 (99) 95 97.6 07/10/25 10:00 Nasal Cannula 2.0 07/10/25 10:00 28 Intake/Output Intake and Output 07/10/25 07:00 Intake Total 1200 ml Output Total 150 ml Balance 1050 ml Intake Oral 1200 ml Output Urine Total 150 ml # Voids 1 General Appearance: Alert, Oriented X3, mild distress Lungs: Other (B Rhonchi) Cardiovascular: Regular rate, Normal S1, Normal S2 Abdomen: Normal bowel sounds, Soft, No tenderness Extremities: Other (2+ edema B) Medications Current Medications Medications Dose Ordered Sig/Markus Route Start Time Stop Time Status Last Admin Dose Admin Sodium Chloride 10 ml Q8HR IV 07/04/25 14:00 07/10/25 06:44 10 ML Acetaminophen/ Hydrocodone Bitart 1 tab Q4HP PRN PO 07/04/25 13:15 07/07/25 05:40 1 TAB Ondansetron HCl 4 mg Q4HP PRN IV 07/04/25 13:15 Docusate Sodium 100 mg BIDPRN PRN PO 07/04/25 13:15 Acetaminophen 650 mg Q6HP PRN PO 07/04/25 13:15 Atorvastatin Calcium 10 mg HS PO 07/04/25 22:00 07/09/25 21:28 10 MG Clonidine HCl 0.1 mg Q4HP PRN PO 07/04/25 13:15 Tamsulosin HCl 0.4 mg QPM PO 07/04/25 18:00 07/09/25 17:19 0.4 MG Multivit/Ca Carb/ B Cmplx/FA/Prenat 1 tab DAILY PO 07/05/25 10:00 07/10/25 10:57 1 TAB Sevelamer HCl 800 mg TIDWM PO 07/04/25 18:00 07/10/25 12:04 800 MG Nitroglycerin 0.4 mg Q5MINP PRN SL 07/04/25 15:00 Morphine Sulfate 2 mg Q30M PRN IV 07/04/25 15:00 Dextrose 50 ml UD PRN IV 07/05/25 10:30 07/07/25 11:59 50 ML Diagnostic Test (Pha) 1 strip ACHS 07/05/25 17:00 07/10/25 11:00 1 STRIP Carvedilol 12.5 mg Q12HR PO 07/05/25 22:00 07/10/25 12:05 12.5 MG Insulin Human Regular ACHS SC 07/07/25 22:00 07/10/25 12:00 3 UNITS Nifedipine 60 mg DAILY PO 07/09/25 10:00 Insulin Glargine 5 units BID@0700,2200 [place] 07/09/25 22:00 07/10/25 06:44 5 UNITS Laboratory Results Laboratory Tests 07/10/25 06:19 Chemistry Test 07/10/25 06:19 Albumin 3.6 g/dL (3.2-4.8) Calcium Level 8.9 mg/dL (8.7-10.4) Magnesium Level 2.1 mg/dL (1.6-2.6) Total Protein 6.5 g/dL (5.7-8.2) LFT Test 07/10/25 06:19 Alanine Aminotransferase (ALT) 22 U/L (7-40) Alkaline Phosphatase 100 U/L (46-116) Aspartate Amino Transferase (AST) < 8 U/L (13-40) L Total Bilirubin 0.4 mg/dL (0.2-1.0) Microbiology Microbiology Date/Time Source Procedure Growth Status 07/04/25 12:43 Blood Blood Culture - Final NO GROWTH AFTER 5 DAYS OF INCUBATION. Complete Assessment/Plan Assessment/Plan Acute hypoxic respiratory failure CHF, acute on chronic, ESRD Old CVA Mixed hyperlipidemia HTN Kidney CA PLAN: Nephrology consult O2 prn Coreg Meghan Echo 07/06/2025: Status post dialysis this morning Hyperkalemia: Potassium is 5.2 Hyponatremia, sodium is 132 Hypotension Albumin was given during dialysis Lipitor Coreg Hold blood pressure medications today Monitor in the hospital 1 more day due to hypotension Check his potassium again in the morning 07/09/25: Physical therapy HD per nephrology Check K+ BP better Out of bed prn DC planning for tomorrow 07/10/25: HD for tomorrow Hyperkalemia: Lokelnc Check K= in am Plan discussed with: Patient Date of Service: Jul 10, 2025 Billing Provider: ABDIRIZAK WILLS MD Common Visit Codes: NOT BILLABLE ABDIRIZAK WILLS MD Jul 10, 2025 15:05
[2025-07-10] MEDS: SODIUM ZIRCONIUM CYCL 10 GM PAK PO ONE (16:38)
[2025-07-11] VITALS (9 sets, daily range): BP systolic 109–140; BP diastolic 68–95; PULSE 72–95; RESP 16–24; TEMP 97.1–98.2; O2SAT 92–100
[2025-07-11 07:35] LABS: Hematocrit 32.6 % (41.0-53.0); Hemoglobin 11.0 g/dL (13.5-17.5); Mean Corpuscular Hemoglobin 33.1 pg (28.0-32.0); Mean Corpuscular Volume 98.0 fL (80.0-100.0); Nucleated Red Blood Cells % 0.0 %
[2025-07-11 07:42] LABS: Anion Gap 16 (5-15); Calcium 8.9 mg/dL (8.7-10.4); Carbon Dioxide 25 mmol/L (20-31)
[2025-07-11 07:48] LABS: BUN/Creatinine Ratio 11.3 (10.0-20.0)
[2025-07-11 07:54] LABS: Blood Urea Nitrogen 103 mg/dL (9-23); Chloride 89 mmol/L (98-107); Glucose 62 mg/dL (74-106); Potassium 5.2 mmol/L (3.5-5.1); Sodium 130 mmol/L (136-145)
--- NOTE | 2025-07-11 15:56 | DVHPN2 ---
Subjective No complaints Changes from previous H/P or p: Changes Eyes: No Pain, No Vision change, No Conjunctivae inflammation, No Eyelid inflammation, No Other, No Redness ENT: No Ear pain, No Ear discharge, No Nose pain, No Nose discharge, No Nose congestion, No Mouth pain, No Mouth swelling, No Throat pain, No Throat swelling, No Other Cardiovascular: No Chest Pain, No Palpitations, No Orthopnea, No Paroxysmal Noc. Dyspnea; Edema (Lower extremity); No Lt Headedness, No Other Respiratory: No Cough, No Dry; Shortness of breath; No SOB with excertion, No Wheezing, No Hemoptysis, No Pleuritic Pain, No Sputum, No Other Gastrointestinal: No Nausea, No Vomiting, No Abdominal Pain, No Diarrhea, No Constipation, No Melena, No Hematochezia, No Other Genitourinary: No Dysuria, No Frequency, No Incontinence, No Hematuria, No Retention; Other (On hemodialysis) Musculoskeletal: other (Left arm AV shunt); No neck pain, No shoulder pain, No arm pain, No back pain, No hand pain, No leg pain, No foot pain Skin: No Rash, No Lesions, No Jaundice, No Bruising, No Other Objective Vitals Vital Signs Date Time Temp Pulse Resp B/P (MAP) Pulse Ox O2 Delivery O2 Flow Rate FiO2 07/11/25 12:33 97.4 86 16 135/87 (103) 94 97.4 07/11/25 10:00 Room Air 0.0 07/11/25 10:00 21 Intake/Output Intake and Output 07/11/25 07:00 Intake Total 1000 ml Output Total 0 ml Balance 1000 ml Intake Oral 1000 ml Urine/Stool Mix 0 ml # Voids 4 General Appearance: Alert, Oriented X3, mild distress Lungs: Other (B Rhonchi) Cardiovascular: Regular rate, Normal S1, Normal S2 Abdomen: Normal bowel sounds, Soft, No tenderness Extremities: Other (2+ edema B) Medications Current Medications Medications Dose Ordered Sig/Markus Route Start Time Stop Time Status Last Admin Dose Admin Sodium Chloride 10 ml Q8HR IV 07/04/25 14:00 07/11/25 14:00 10 ML Acetaminophen/ Hydrocodone Bitart 1 tab Q4HP PRN PO 07/04/25 13:15 07/11/25 04:32 1 TAB Ondansetron HCl 4 mg Q4HP PRN IV 07/04/25 13:15 Docusate Sodium 100 mg BIDPRN PRN PO 07/04/25 13:15 Acetaminophen 650 mg Q6HP PRN PO 07/04/25 13:15 Atorvastatin Calcium 10 mg HS PO 07/04/25 22:00 07/10/25 21:54 10 MG Clonidine HCl 0.1 mg Q4HP PRN PO 07/04/25 13:15 Tamsulosin HCl 0.4 mg QPM PO 07/04/25 18:00 07/10/25 18:10 0.4 MG Multivit/Ca Carb/ B Cmplx/FA/Prenat 1 tab DAILY PO 07/05/25 10:00 07/11/25 10:25 1 TAB Sevelamer HCl 800 mg TIDWM PO 07/04/25 18:00 07/11/25 12:47 800 MG Nitroglycerin 0.4 mg Q5MINP PRN SL 07/04/25 15:00 Morphine Sulfate 2 mg Q30M PRN IV 07/04/25 15:00 Dextrose 50 ml UD PRN IV 07/05/25 10:30 07/07/25 11:59 50 ML Diagnostic Test (Pha) 1 strip ACHS 07/05/25 17:00 07/11/25 11:30 1 STRIP Carvedilol 12.5 mg Q12HR PO 07/05/25 22:00 07/10/25 21:54 12.5 MG Insulin Human Regular ACHS [place] 07/07/25 22:00 07/11/25 12:52 6 UNITS Nifedipine 60 mg DAILY PO 07/09/25 10:00 Insulin Glargine 5 units BID@0700,2200 [place] 07/09/25 22:00 07/10/25 22:07 5 UNITS Laboratory Results Laboratory Tests 07/11/25 06:24 Chemistry Test 07/11/25 06:24 Calcium Level 8.9 mg/dL (8.7-10.4) Microbiology Microbiology Date/Time Source Procedure Growth Status 07/04/25 12:43 Blood Blood Culture - Final NO GROWTH AFTER 5 DAYS OF INCUBATION. Complete Assessment/Plan Assessment/Plan Acute hypoxic respiratory failure CHF, acute on chronic, ESRD Old CVA Mixed hyperlipidemia HTN Kidney CA PLAN: Nephrology consult O2 prn Coreg Meghan Echo 07/06/2025: Status post dialysis this morning Hyperkalemia: Potassium is 5.2 Hyponatremia, sodium is 132 Hypotension Albumin was given during dialysis Lipitor Coreg Hold blood pressure medications today Monitor in the hospital 1 more day due to hypotension Check his potassium again in the morning 07/09/25: Physical therapy HD per nephrology Check K+ BP better Out of bed prn DC planning for tomorrow 07/10/25: HD for tomorrow Hyperkalemia: Lokelma Check K= in am 07/11/25: HD today Monitor Plan discussed with: Patient My Orders Orders - ABDIRIZAK WILLS MD Procedure Category Date Status Time Basic Metabolic Panel LAB 07/12/25 Verified 04:00 Date of Service: Jul 11, 2025 Billing Provider: ABDIRIZAK WILLS MD Common Visit Codes: NOT BILLABLE ABDIRIZAK WILLS MD Jul 11, 2025 15:55
--- NOTE | 2025-07-11 19:34 | DVHPN2 ---
Progress Note - Dictate Date Seen: Jul 11, 2025 Medical Necessity Reason Pt with a Central, PICC or Fol: No Subjective Patient seen earlier this evening, he is more alert today. He states that he is agreeable to dialysis. vital signs Vital Sign Date Time Temp Pulse Resp B/P (MAP) Pulse Ox O2 Delivery O2 Flow Rate FiO2 07/11/25 16:42 97.5 82 16 127/87 (100) 97 97.5 07/11/25 10:00 Room Air 0.0 07/11/25 10:00 21 Total Intake and Output 07/10/25 07/10/25 07/11/25 15:00 23:00 07:00 Intake Total 650 ml 350 ml Output Total 0 ml Balance 650 ml 350 ml medications Current Medications Medications Dose Ordered Sig/Markus Route Start Time Stop Time Status Last Admin Dose Admin Sodium Chloride 10 ml Q8HR IV 07/04/25 14:00 07/11/25 14:00 10 ML Acetaminophen/ Hydrocodone Bitart 1 tab Q4HP PRN PO 07/04/25 13:15 07/11/25 04:32 1 TAB Ondansetron HCl 4 mg Q4HP PRN IV 07/04/25 13:15 Docusate Sodium 100 mg BIDPRN PRN PO 07/04/25 13:15 Acetaminophen 650 mg Q6HP PRN PO 07/04/25 13:15 Atorvastatin Calcium 10 mg HS PO 07/04/25 22:00 07/10/25 21:54 10 MG Clonidine HCl 0.1 mg Q4HP PRN PO 07/04/25 13:15 Tamsulosin HCl 0.4 mg QPM PO 07/04/25 18:00 07/10/25 18:10 0.4 MG Multivit/Ca Carb/ B Cmplx/FA/Prenat 1 tab DAILY PO 07/05/25 10:00 07/11/25 10:25 1 TAB Sevelamer HCl 800 mg TIDWM PO 07/04/25 18:00 07/11/25 12:47 800 MG Nitroglycerin 0.4 mg Q5MINP PRN SL 07/04/25 15:00 Morphine Sulfate 2 mg Q30M PRN IV 07/04/25 15:00 Dextrose 50 ml UD PRN IV 07/05/25 10:30 07/07/25 11:59 50 ML Diagnostic Test (Pha) 1 strip ACHS 07/05/25 17:00 07/11/25 17:00 1 STRIP Carvedilol 12.5 mg Q12HR PO 07/05/25 22:00 07/10/25 21:54 12.5 MG Insulin Human Regular ACHS SC 07/07/25 22:00 07/11/25 12:52 6 UNITS Nifedipine 60 mg DAILY PO 07/09/25 10:00 Insulin Glargine 5 units BID@0700,2200 [place] 07/09/25 22:00 07/10/25 22:07 5 UNITS objective Gen: nad, elderly male heent: nc/at, mmm lungs: cta anteriorly cvs: no rub abd: soft, bowel sounds audible ext: + edema laboratory and microbiology Laboratory Tests 07/11/25 06:24 Test 07/11/25 06:24 Range/Units Serum Glucose 62 L 74-106 mg/dL Assessment/Plan Problem List/Assessment/Plan End-stage renal disease on hemodialysis Congestive heart failure exacerbation Diabetes mellitus type 2 Hypertension CVA Anemia of chronic kidney disease Hyperkalemia due to dietary indiscretion Recommendations - dialysis today, discussed with hemodialysis nurse in-hospital - discharge planning, patient to either continue with dialysis if you remains agreeable or transition to hospice without dialysis if he refuses treatment. - discussed this with patient's son on July 10. Dietary Evaluation Review Comments: Nutrition Recommendation: 1) CCHO 60gm + renal standrad diet 2) Monitor PO intake, lab values, weight trend, and I/O Expected Outcomes/Goals: Intake to meet >75% estimated needs Lab values to improve FU 3-5 days Plan discussed with: Other NEELIMA OWENS MD Jul 11, 2025 19:34
[2025-07-11] MEDS ORDERED: SODIUM CHL 0.9% 1000 ML BAG XX ONE (19:45)
[2025-07-12 01:00] VITALS: BP 135/93; PULSE 95; RESP 20; TEMP 98.1; O2SAT 96
[2025-07-12 05:00] VITALS: BP 142/97; PULSE 92; RESP 18; TEMP 98; O2SAT 98
[2025-07-12 07:48] LABS: Potassium 5.0 mmol/L (3.5-5.1)
[2025-07-12 07:49] LABS: Anion Gap 16 (5-15); Calcium 9.3 mg/dL (8.7-10.4); Carbon Dioxide 27 mmol/L (20-31)
[2025-07-12 07:54] LABS: BUN/Creatinine Ratio 10.7 (10.0-20.0); Chloride 93 mmol/L (98-107); Glucose 76 mg/dL (74-106); Sodium 136 mmol/L (136-145)
[2025-07-12 07:56] LABS: Blood Urea Nitrogen 87 mg/dL (9-23)
[2025-07-12 08:00] VITALS: PULSE 78; PULSE 91; RESP 22; O2SAT 92
[2025-07-12 09:00] VITALS: BP 129/90; PULSE 94; RESP 24; TEMP 97.7; O2SAT 92
--- NOTE | 2025-07-12 09:38 | DVHDS2 ---
Discharge Summary Date of Admission Jul 04, 2025 at 14:53 Date of Discharge: Jul 12, 2025 Labs/Diagnostic Data: Laboratory Results Test 07/12/25 07:05 07/12/25 06:34 07/11/25 06:24 07/10/25 06:19 Sodium Level 136 mmol/L (136-145) Potassium Level 5.0 mmol/L (3.5-5.1) Chloride Level 93 mmol/L (98-107) Carbon Dioxide Level 27 mmol/L (20-31) Anion Gap 16 (5-15) Blood Urea Nitrogen 87 mg/dL (9-23) Creatinine 8.14 mg/dL (0.700-1.30) Glomerular Filtration Rate Calc 6 mL/min (>90) BUN/Creatinine Ratio 10.7 (10.0-20.0) Serum Glucose 76 mg/dL (74-106) Calcium Level 9.3 mg/dL (8.7-10.4) POC Glucose 73 mg/dl (70-106) White Blood Count 7.6 10^3/uL (4.4-10.8) Red Blood Count 3.33 10^6/uL (4.5-5.90) Hemoglobin 11.0 g/dL (13.5-17.5) Hematocrit 32.6 % (41.0-53.0) Mean Corpuscular Volume 98.0 fL (80.0-100.0) Mean Corpuscular Hemoglobin 33.1 pg (28.0-32.0) Mean Corpuscular Hemoglobin Concent 33.7 g/dL (32.0-36.0) Red Cell Distribution Width 16.3 % (11.8-14.3) Platelet Count 107 10^3/uL (140-450) Mean Platelet Volume 10.0 fL (6.9-10.8) Neutrophils (%) (Auto) 78.1 % (37.0-80.0) Lymphocytes (%) (Auto) 5.1 % (10.0-50.0) Monocytes (%) (Auto) 7.5 % (0.0-12.0) Eosinophils (%) (Auto) 8.5 % (0.0-7.0) Basophils (%) (Auto) 0.8 % (0.0-2.0) Neutrophils # (Auto) 6.0 10 ^3/uL (1.6-8.6) Lymphocytes # (Auto) 0.4 10 ^3/uL (0.4-5.4) Monocytes # (Auto) 0.6 10 ^3/uL (0-1.3) Eosinophils # (Auto) 0.6 10 ^3/uL (0-0.8) Basophils # (Auto) 0.1 10 ^3/uL (0-0.2) Nucleated Red Blood Cells 0.0 % Magnesium Level 2.1 mg/dL (1.6-2.6) Total Bilirubin 0.4 mg/dL (0.2-1.0) Aspartate Amino Transferase (AST) < 8 U/L (13-40) Alanine Aminotransferase (ALT) 22 U/L (7-40) Alkaline Phosphatase 100 U/L (46-116) Total Protein 6.5 g/dL (5.7-8.2) Albumin 3.6 g/dL (3.2-4.8) Test 07/05/25 05:37 07/04/25 12:23 Phosphorus Level 3.2 mg/dL (2.4-5.1) Parathyroid Hormone (Intact) 371.7 pg/mL (18.4-80.1) Lactic Acid Level 1.7 mmol/L (0.4-2.0) B-Type Natriuretic Peptide > 5000.00 pg/mL (0-100) Other Laboratory Tests 07/12/25 07:05 07/11/25 06:24 Brief Hx & Hospital Course: Final diagnoses: Acute hypoxic respiratory failure CHF, acute on chronic, ESRD Old CVA Mixed hyperlipidemia HTN Kidney CA 84-year-old male with end-stage renal disease came with acute hypoxic respiratory failure and hyperkalemia and fluid overload He was dialyzed here in the hospital His potassium was high so he was given Lokelma and dialysis helped stabilize his potassium level He had significant edema in his legs Sometimes he refused to have dialysis Most of the times he was lethargic especially in the morning and after dialysis We had a lengthy discussion with the family The daughter who is the main caregiver is aware of his condition Today his potassium is 5.0 He is still has 2+ edema bilaterally in his lower extremities Last dialysis was done last night with 4 L removed Next dialysis is in 2 days Discharged home on the same home medications and follow up with the same scheduled for dialysis and Wednesday and Wednesday Condition at Discharge: Stable Final Diagnosis/Problems List Acute hypoxic respiratory failure CHF, acute on chronic, ESRD Old CVA Mixed hyperlipidemia HTN Kidney [place] Discharge Disposition: Home SNF Discharge Will this Physician continue t: No Discharge Instruct/Medications Scheduled Aspirin (Aspir-Low), 81 MG PO DAILY, (Reported) Atorvastatin Calcium (Lipitor), 1 TAB PO QPM, (Reported) Calcium Acetate (Phosphate Bin (Calcium Acetate), 1,334 MG PO TIDWM, (Reported) Hydralazine Hcl (Hydralazine Hcl), 50 MG PO BID, (Reported) Insulin Glargine (Lantus), 25 UNIT SC HS, (Reported) Isosorbide Mononitrate (Isosorbide Mononitrate Er), 30 MG PO DAILY, (Reported) Metoprolol Succinate (Metoprolol Succinate Er), 50 MG PO DAILY, (Reported) Nifedipine (Nifedipine Er), 1 TAB PO DAILY, (Reported) Discharge Statement: "Patient was advised to return to the ER or call 911 if any headaches, dizziness, shortness of breath, chest pain, abdominal pain, bleeding, fevers, or worsening of medical condition. Patient was counseled about treatment plan, medications, possible side effects, patientverbalized understanding. All questions were answered to the best of my ability. This discharge took greater then 30 minutes in planning, reviewing documentation, counseling the patient, and discussing with other team members." ASSESSMENT ASSESSMENT Assessment Date of Service: Jul 12, 2025 Billing Provider: ABDIRIZAK WILLS MD Common Visit Codes: NOT BILLABLE ABDIRIZAK WILLS MD Jul 12, 2025 09:38
[2025-07-12 10:00] VITALS: O2SAT 93
[2025-07-12 10:42] VITALS: BP 125/90; PULSE 78; TEMP 97.8; O2SAT 94
== END 2025-07-12 11:30 | disposition home or self-care (01) | DRG 291 ==
LOC: ER 11:17 → OVERFLOW 14:53 → TELE-WESTW 16:49
PROVIDERS: ADMIT Internal Medicine Geriatric Medicine; ATTEND Internal Medicine Geriatric Medicine
PROC: 5A1D70Z Performance of Urinary Filtration, Intermittent, Less than 6 Hours Per Day (ICD-10-PCS; principal; 2025-07-06)
PROC: 5A1D70Z Performance of Urinary Filtration, Intermittent, Less than 6 Hours Per Day (ICD-10-PCS; 2025-07-11)
DX: I13.2 Hypertensive heart and chronic kidney disease with heart failure and with stage 5 chronic kidney disease, or end stage renal disease (principal); I50.33 Acute on chronic diastolic (congestive) heart failure; J96.01 Acute respiratory failure with hypoxia; N18.6 End stage renal disease; E87.1 Hypo-osmolality and hyponatremia; D63.1 Anemia in chronic kidney disease; Z99.2 Dependence on renal dialysis; E11.22 Type 2 diabetes mellitus with diabetic chronic kidney disease; E78.2 Mixed hyperlipidemia; I25.10 Atherosclerotic heart disease of native coronary artery without angina pectoris; E87.5 Hyperkalemia; E11.65 Type 2 diabetes mellitus with hyperglycemia; E11.649 Type 2 diabetes mellitus with hypoglycemia without coma; Z90.49 Acquired absence of other specified parts of digestive tract; Z85.46 Personal history of malignant neoplasm of prostate; Z85.528 Personal history of other malignant neoplasm of kidney; Z95.5 Presence of coronary angioplasty implant and graft; Z79.4 Long term (current) use of insulin; Z79.82 Long term (current) use of aspirin; Z79.899 Other long term (current) drug therapy; Z86.73 Personal history of transient ischemic attack (TIA), and cerebral infarction without residual deficits; Z80.3 Family history of malignant neoplasm of breast; Z82.0 Family history of epilepsy and other diseases of the nervous system; Z82.49 Family history of ischemic heart disease and other diseases of the circulatory system; Z83.3 Family history of diabetes mellitus
CPT/HCPCS: 36415; 71046; 80048; 80053; 82962; 83605; 83735; 83880; 83970; 84100; 84132; 85025; 87040; 90935; 93970; 94640; 94644; 97110; 97116; 97163; 97530; G0378; J1815; P9047

== ENCOUNTER 2025-07-14 00:56 | Inpatient (IN) | payer OTHER ==
[2025-07-14] VITALS (10 sets, daily range): BP systolic 128–192; BP diastolic 80–112; PULSE 67–112; RESP 17–19; TEMP 97–98.2; O2SAT 76–97
[~2025-07-14] VITALS: Ht 170.2 cm; Wt 59.9 kg
[~2025-07-14 00:56] MED LIST: ASPI-543 PO; ATOR-507 PO; CALC667C PO; HYDR50TA47 PO; INSLANTI SC; ISOS1TAB28 PO; METO-289 PO; NIFE1TAB30 PO
--- NOTE | 2025-07-14 01:21 | ED.PDOC ---
History of Present Illness HPI Comments 84-year-old male who came to ER via EMS for fall injury. Per EMS, patient picked up at [facility]. Was seen by caregivers, lying in the bathroom floor, possibly over 2 hours laying there. Noted abrasion on the back of his head. Patient is baseline A&O x1, never diagnosed with dementia, but has a declining cognitive value. Chief Complaint: FAll injury Time Seen by MD: 01:21 Reviewed Notes: Nurses Notes Allergies: Coded Allergies: No Known Drug Allergy (Verified Allergy, Unknown, 07/04/25) Home Meds Reported Medications Nifedipine (Nifedipine Er) 60 Mg Tab, 1 TAB PO DAILY, #30 TAB 5 Refills 07/04/25 Metoprolol Succinate (Metoprolol Succinate Er) 50 Mg Tab, 50 MG PO DAILY for 30 Days, MG 07/04/25 Isosorbide Mononitrate (Isosorbide Mononitrate Er) 30 Mg Tab, 30 MG PO DAILY for 30 Days, MG 07/04/25 Insulin Glargine (Lantus) 100 Unit/Ml Inj, 25 UNIT SC HS, INJ 07/04/25 Hydralazine Hcl (Hydralazine Hcl) 50 Mg Tab, 50 MG PO BID for 30 Days, MG 07/04/25 Calcium Acetate (Phosphate Bin (Calcium Acetate) 667 Mg Cap, 1334 MG PO TIDWM for 30 Days, MG 07/04/25 Atorvastatin Calcium (Lipitor) 40 Mg Tab, 1 TAB PO QPM, #90 TAB 1 Refill 07/04/25 Aspirin (Aspir-Low) 81 Mg Tab, 81 MG PO DAILY for 30 Days, MG 07/04/25 Information Source: Emergency Med Personnel Mode of Arrival: EMS Past Medical History PAST MEDICAL HISTORY: Cancer, CHF, CVA, DM, ESRD, High Lipids, HTN, [place] Surgical History: Cholecystectomy Family History Family History: Reviewed,noncontributory to illness, Unknown Social History Smoker: Non-Smoker Alcohol: Denies ETOH Use Drugs: Denies Drug Use Lives In: Assisted Care Unable to Obtain due to: Altered Mental Status Physical Exam General Appearance: No Apparent Distress, Normal HEENT: Normal ENT Inspection, Pharynx Normal, TMs Normal Neck: Full Range of Motion, Non-Tender, Normal, Normal Inspection Respiratory: Chest Non-Tender, Lungs Clear, No Accessory Muscle Use, No Respiratory Distress, Normal Breath Sounds Cardiovascular: No Edema, No JVD, No Murmur, No Gallop, Normal Peripheral Pulses, Regular Rate/Rhythm Breast Exam: Deferred Gastrointestinal: No Organomegaly, Non Tender, No Pulsatile Mass, Normal Bowel Sounds, Soft Genitalia: Deferred Pelvic: Deferred Rectal: Deferred Extremities: No calf tenderness, Normal capillary refill, Normal inspection, Normal range of motion, Non-tender, No pedal edema Musculoskeletal : Apperance: Normal Neurologic: Alert, manager internet II-XII nml as Tested, No Motor Deficits, Normal Affect, Normal Mood, No Sensory Deficits Cerebellar Function: Normal Reflexes: Normal Skin: Dry, Normal Color, Warm Lymphatic: No Adenopathy Was a procedure done? Was a procedure done?: No Differential Dx Considerations may include: Anemia, electrolyte imbalance, dementia, dehydration, fall injury, head injury X-Ray, Labs, Meds, VS Vital Signs Date Time Temp Pulse Resp B/P (MAP) Pulse Ox O2 Delivery O2 Flow Rate FiO2 07/14/25 01:25 97.7 91 95 144/99 95 97.7 Lab Test 07/14/25 01:16 Range/Units White Blood Count 7.6 4.4-10.8 10^3/uL Red Blood Count 3.45 L 4.5-5.90 10^6/uL Hemoglobin 11.2 L 13.5-17.5 g/dL Hematocrit 34.0 L 41.0-53.0 % Mean Corpuscular Volume 98.8 80.0-100.0 fL Mean Corpuscular Hemoglobin 32.5 H 28.0-32.0 pg Mean Corpuscular Hemoglobin Concent 32.9 32.0-36.0 g/dL Red Cell Distribution Width 16.3 H 11.8-14.3 % Platelet Count 114 L 140-450 10^3/uL Mean Platelet Volume 10.0 6.9-10.8 fL Neutrophils (%) (Auto) 78.4 37.0-80.0 % Lymphocytes (%) (Auto) 5.6 L 10.0-50.0 % Monocytes (%) (Auto) 7.1 0.0-12.0 % Eosinophils (%) (Auto) 8.2 H 0.0-7.0 % Basophils (%) (Auto) 0.7 0.0-2.0 % Neutrophils # (Auto) 5.9 1.6-8.6 10 ^3/uL Lymphocytes # (Auto) 0.4 0.4-5.4 10 ^3/uL Monocytes # (Auto) 0.5 0-1.3 10 ^3/uL Eosinophils # (Auto) 0.6 0-0.8 10 ^3/uL Basophils # (Auto) 0.1 0-0.2 10 ^3/uL Nucleated Red Blood Cells 0.0 % Prothrombin Time 13.3 H 9.3-11.8 sec Prothrombin Time INR 1.29 H 0.9-1.15 Activated Partial Thromboplast Time 31.9 24.5-34.5 SEC Sodium Level 134 L 136-145 mmol/L Potassium Level 5.2 H 3.5-5.1 mmol/L Chloride Level 92 L 98-107 mmol/L Carbon Dioxide Level 25 20-31 mmol/L Anion Gap 17 H 5-15 Blood Urea Nitrogen 122 #*H 9-23 mg/dL Creatinine 8.92 H 0.700-1.30 mg/dL Glomerular Filtration Rate Calc 5 >90 mL/min BUN/Creatinine Ratio 13.7 10.0-20.0 Serum Glucose 150 H 74-106 mg/dL Calcium Level 9.5 8.7-10.4 mg/dL Total Bilirubin 0.6 0.2-1.0 mg/dL Aspartate Amino Transferase (AST) < 8 L 13-40 U/L Alanine Aminotransferase (ALT) 19 7-40 U/L Alkaline Phosphatase 99 46-116 U/L Total Protein 7.0 5.7-8.2 g/dL Albumin 3.8 3.2-4.8 g/dL Time of 1ST Reevaluation: 01:18 Reevaluation 1ST: Unchanged Patient Education/Counseling: Diagnosis, Treatment Family Education/Counseling: No Family Present SEPSIS Sepsis Screen Physician Orders Chest Portable (07/14/25 01:07) Head Without Contrast (07/14/25 01:07) Electrocardigram (07/14/25 01:07) Vital Signs Date Time Temp Pulse Resp B/P (MAP) Pulse Ox O2 Delivery O2 Flow Rate FiO2 07/14/25 01:25 97.7 91 95 144/99 95 97.7 Laboratory Tests Test 07/14/25 01:16 White Blood Count 7.6 10^3/uL (4.4-10.8) Departure 1 Departure Time of Disposition: 03:20 Impression: Primary Impression: Acute on chronic renal failure Additional Impressions: Generalized weakness Comfort measures only status Hyperkalemia Disposition: ADMITTED INPATIENT Admit to: Med Surg Condition: Guarded Comments 84 yo male comfort measures only status, h/o ESRD but stopped dialysis now with generalized weakness, too weak to get up off the floor. On lab review he has renal failure, mild hyperkalemia 5.2. Patient will need admission for supportive care and further workup Critical Care Note Critical Care Time?: Yes (35 min-critical care time only) Critical care comment: Total critical care time: Approximately 36 minutes Due to a high probability of clinically significant, life threatening deterioration, the patient required my highest level of preparedness to intervene emergently and I personally spent this critical care time directly and personally managing the patient. This critical care time included obtaining a history; examining the patient; pulse oximetry; ordering and review of studies; arranging urgent treatment with development of a management plan; evaluation of patient's response to treatment; frequent reassessment; and, discussions with other providers. This critical care time was performed to assess and manage the high probability of imminent, life-threatening deterioration that could result in multi-organ failure. It was exclusive of separately billable procedures and treating other patients. Stability Stability form required: No Heart Score Heart Score: Heart Score Response (Comments) Value History N/A 0 EKG N/A 0 Age N/A 0 Risk Factors N/A 0 Troponin N/A 0 Total 0 I personally scribed for GENESIS WTASON MD ([email or web address]) on 07/14/25 at 01:21. Electronically submitted by Joni Amador ([email or web address]). GENESIS WATSON MD Jul 14, 2025 01:21
[2025-07-14 01:42] LABS: Hematocrit 34.0 % (41.0-53.0); Hemoglobin 11.2 g/dL (13.5-17.5); Mean Corpuscular Hemoglobin 32.5 pg (28.0-32.0); Mean Corpuscular Volume 98.8 fL (80.0-100.0); Nucleated Red Blood Cells % 0.0 %
[2025-07-14 01:58] LABS: INR 1.29 (0.9-1.15); Partial Thromboplastin Time 31.9 SEC (24.5-34.5); Prothrombin Time 13.3 sec (9.3-11.8)
[2025-07-14 02:04] LABS: Alanine Aminotransferase 19 U/L (7-40); Albumin 3.8 g/dL (3.2-4.8); Alkaline Phosphatase 99 U/L (46-116); Anion Gap 17 (5-15); BUN/Creatinine Ratio 13.7 (10.0-20.0); Calcium 9.5 mg/dL (8.7-10.4); Carbon Dioxide 25 mmol/L (20-31); Total Protein 7.0 g/dL (5.7-8.2)
[2025-07-14 02:05] LABS: Bilirubin, Total 0.6 mg/dL (0.2-1.0)
[2025-07-14 02:07] LABS: Chloride 92 mmol/L (98-107); Glucose 150 mg/dL (74-106); Potassium 5.2 mmol/L (3.5-5.1); Sodium 134 mmol/L (136-145)
[2025-07-14 02:08] LABS: Blood Urea Nitrogen 122 mg/dL (9-23)
--- NOTE | 2025-07-14 02:47 | DVH ---
EXAM: CT HEAD WITHOUT CONTRAST INDICATION: head injury TECHNIQUE: CT of the head without intravenous contrast. Radiation Dose : 1. Head: CT Dose: CTDI volume is 50.65 mGy. Dose-length product is 2432.65 mGy*cm The dose indicators for CT are the volume Computed Tomography (CT) Dose Index (CTDIvol) and the Dose Length Product (DLP), and are measured in units of mGy and mGy-cm, respectively. These indicators are not patient dose, but values generated from the CT scanner acquisition factors. The report includes radiation exposure data for exposures received during this examination. COMPARISON: CT HEAD WITHOUT CONTRAST on DOS: 03/19/25, MRI BRAIN HEAD WO CONTRAST on DOS: 03/29/24, CT STROKE CTH on DOS: 03/29/24 FINDINGS: There is no evidence of acute intracranial hemorrhage, extra-axial collection, mass effect, midline shift, herniation or hydrocephalus. Chronic appearing right basal ganglia lacunar infarct. Increased prominence of the ventricles, sulci and cisterns consistent with sequelae of atrophic cortical volume loss. The bishop-white differentiation is intact. Moderate diffuse confluent periventricular and subcortical white matter hypoattenuation is nonspecific but may be related to small vessel ischemic disease. The visualized paranasal sinuses and mastoid air cells are clear. The surrounding soft tissues and osseous structures are unremarkable. IMPRESSION: 1. No acute intracranial abnormality. 2. Chronic sequelae of microangiopathy and atrophic cortical volume loss. Radiation optimization: All CT scans at this facility use at least one of these dose optimization techniques: automated exposure control mA and/or kV adjustment per patient size (includes targeted exams where dose is matched to clinical indication) or iterative reconstruction.
--- NOTE | 2025-07-14 02:47 | DVH ---
CHEST RADIOGRAPH INDICATION: SOB TECHNIQUE: Single frontal view of the chest was obtained COMPARISON: CT HEAD WITHOUT CONTRAST on DOS: 07/14/25, XY CHEST TWO VIEWS ROUTINE on DOS: 07/04/25, XY CHEST PORTABLE on DOS: 03/19/25, CT HEAD WITHOUT CONTRAST on DOS: 03/19/25, XY CHEST PORTABLE on DOS: 02/28/25 FINDINGS: Lines and Tubes: None Lungs: Moderate diffuse increased prominence of the pulmonary vasculature. No evidence of focal consolidation. Pleura: No effusion. No pneumothorax. Cardiomediastinal contours: Unremarkable Bones: Unremarkable IMPRESSION: 1. Moderate pulmonary vascular congestion.
[2025-07-14] MEDS: LORazepam 0.5 MG TAB PO ONE (03:22)
[2025-07-14] MEDS ORDERED: ACETAMINOPHEN 325 MG TAB PO PRN (03:45)
[2025-07-14] MEDS ORDERED: DOCUSATE SOD 100 MG CAP PO PRN (03:45)
[2025-07-14] MEDS ORDERED: ONDANSETRON HCL 4 MG/2 ML VIAL IV PRN (03:45)
[2025-07-14] MEDS ORDERED: HYDROcodone-ACET 5/325MG TAB PO PRN (03:45)
[2025-07-14] MEDS ORDERED: MORPHINE SULFATE INJ 2 MG/ml SYRG IV PRN (03:45)
[2025-07-14] MEDS ORDERED: NITROGLYCERIN 0.4 MG SL TAB SL PRN (03:45)
[2025-07-14] MEDS: SODIUM ZIRCONIUM CYCL 10 GM PAK PO ONE (04:12)
--- NOTE | 2025-07-14 04:17 | DVHHP2 ---
History of Present Illness Reason for Visit: Generalized weakness History of Present Illness The patient is a 84-year-old male DNR with multiple past medical history including ESRD, CHF, CVA, diabetes mellitus, and hypertension who presented to [facility] ED for evaluation of fall injury. As reported by EMS, patient was picked up at [facility] because she was found lying in the bathroom floor possibly over 2 hours as reported by caregivers. Patient was noted to have abrasion on the back of his head, never diagnosed with dementia, but has a declining cognitive value. Patient was seen and evaluated in the ED, laboratory data shows WBC 7.6, hemoglobin 11.2, hematocrit 34.0, platelets 114, sodium 134, potassium 5.2, BUN 122, creatinine 8.92, GFR 5, glucose 150, anion gap 17, calcium 9.5, PT 13.3, INR 1.29, APTT 31.9, blood pressure 144/99, heart rate 90, temperature 97.7 F, O2 saturation 95% on room air. Chest x-ray revealing moderate pulmonary vascular congestion. Patient was started on IV Lasix, please see medication orders section in the computer. On my assessment, son at bedside, patient denied chest pain, no headache, dizziness, diaphoresis, no diarrhea, nausea, vomiting, fever, no chills. Patient was admitted for further evaluation and medical management. Past Medical History Cancer, CHF, CVA, DM, ESRD, High Lipids, HTN, [place] Past Surgical History Cholecystectomy Family History Reviewed, noncontributory to the management of this case. Past Social History The patient lives at home, denies smoking, alcohol or illicit drugs abuse. Review of Systems Constitutional: Yes: Weakness, Other (Head trauma); No: Fever, Chills, Sweats, Malaise Eyes: No: Pain, Vision change, Conjunctivae inflammation, Eyelid inflammation, Other, Redness ENT: No: Ear pain, Ear discharge, Nose pain, Nose discharge, Nose congestion, Mouth pain, Mouth swelling, Throat pain, Throat swelling, Other Respiratory: No: Cough, Dry, Shortness of breath, SOB with excertion, Wheezing, Hemoptysis, Pleuritic Pain, Sputum, Wheezing, Other Cardiovascular: No: Chest Pain, Palpitations, Orthopnea, Paroxysmal Noc. Dysp ro, Edema, Lt Headedness, Other Gastrointestinal: No: Nausea, Vomiting, Abdominal Pain, Diarrhea, Constipation, Melena, Hematochezia, Other Genitourinary: No Dysuria, No Frequency, No Incontinence, No Hematuria, No Retention, No Other Musculoskeletal: No: other, neck pain, shoulder pain, arm pain, back pain, hand pain, leg pain, foot pain Skin: No: Rash, Lesions, Jaundice, Bruising, Other Neurological: No: Weakness, Numbness, Incoordination, Change in speech, Confusion, Seizures, Other Allergies: Coded Allergies: No Known Drug Allergy (Verified Allergy, Unknown, 07/04/25) Exam Vital Signs Vital Signs Date Time Temp Pulse Resp B/P (MAP) Pulse Ox O2 Delivery O2 Flow Rate FiO2 07/14/25 01:25 97.7 91 95 144/99 95 97.7 General Appearance: Alert, Cooperative, No acute distress, Other (Oriented x2) HEENT: Atraumatic, PERRLA, EOMI, Mucous membr. moist/pink Respiratory: Normal air movement Cardiovascular: Regular rate, Normal S1, Normal S2, No murmurs Abdominal: Normal bowel sounds, Soft, No tenderness, No hepatospenomegaly, No masses Extremities: No clubbing, No cyanosis, No edema, Normal pulses, No tenderness/swelling Skin: No rashes, No significant lesion Neuro: Normal speech, Normal tone, Sensation intact, Cranial nerves 3-12 NL, Reflexes 2+ Psych/Mental Status: Mental status NL, Mood NL Labs/Xrays Labs Test 07/14/25 01:16 Range/Units White Blood Count 7.6 4.4-10.8 10^3/uL Red Blood Count 3.45 L 4.5-5.90 10^6/uL Hemoglobin 11.2 L 13.5-17.5 g/dL Hematocrit 34.0 L 41.0-53.0 % Mean Corpuscular Volume 98.8 80.0-100.0 fL Mean Corpuscular Hemoglobin 32.5 H 28.0-32.0 pg Mean Corpuscular Hemoglobin Concent 32.9 32.0-36.0 g/dL Red Cell Distribution Width 16.3 H 11.8-14.3 % Platelet Count 114 L 140-450 10^3/uL Mean Platelet Volume 10.0 6.9-10.8 fL Neutrophils (%) (Auto) 78.4 37.0-80.0 % Lymphocytes (%) (Auto) 5.6 L 10.0-50.0 % Monocytes (%) (Auto) 7.1 0.0-12.0 % Eosinophils (%) (Auto) 8.2 H 0.0-7.0 % Basophils (%) (Auto) 0.7 0.0-2.0 % Neutrophils # (Auto) 5.9 1.6-8.6 10 ^3/uL Lymphocytes # (Auto) 0.4 0.4-5.4 10 ^3/uL Monocytes # (Auto) 0.5 0-1.3 10 ^3/uL Eosinophils # (Auto) 0.6 0-0.8 10 ^3/uL Basophils # (Auto) 0.1 0-0.2 10 ^3/uL Nucleated Red Blood Cells 0.0 % Prothrombin Time 13.3 H 9.3-11.8 sec Prothrombin Time INR 1.29 H 0.9-1.15 Activated Partial Thromboplast Time 31.9 24.5-34.5 SEC Sodium Level 134 L 136-145 mmol/L Potassium Level 5.2 H 3.5-5.1 mmol/L Chloride Level 92 L 98-107 mmol/L Carbon Dioxide Level 25 20-31 mmol/L Anion Gap 17 H 5-15 Blood Urea Nitrogen 122 #*H 9-23 mg/dL Creatinine 8.92 H 0.700-1.30 mg/dL Glomerular Filtration Rate Calc 5 >90 mL/min BUN/Creatinine Ratio 13.7 10.0-20.0 Serum Glucose 150 H 74-106 mg/dL Calcium Level 9.5 8.7-10.4 mg/dL Total Bilirubin 0.6 0.2-1.0 mg/dL Aspartate Amino Transferase (AST) < 8 L 13-40 U/L Alanine Aminotransferase (ALT) 19 7-40 U/L Alkaline Phosphatase 99 46-116 U/L Total Protein 7.0 5.7-8.2 g/dL Albumin 3.8 3.2-4.8 g/dL PATIENT: PAUL SAEZ ACCT: [id number] UNIT: [id number] : 1940 LOC: ER ROOM / BED: / AGE / SEX: 84 / M ADM STATUS: REG ER SERVICE 0107 ORDERING PHYSICIAN: GENESIS WATSON MD PROCEDURE(s): HWOCT - HEAD WITHOUT CONTRAST REASON: head injury ORDER NUMBER(s): [id number], ACCESSION NUMBER(s): [id number] EXAM: CT HEAD WITHOUT CONTRAST INDICATION: head injury TECHNIQUE: CT of the head without intravenous contrast. Radiation Dose: 1. Head: CT Dose: CTDI volume is 50.65 mGy. Dose-length product is 2432.65 mGy*cm The dose indicators for CT are the volume Computed Tomography (CT) Dose Index (CTDIvol) and the Dose Length Product (DLP), and are measured in units of mGy and mGy-cm, respectively. These indicators are not patient dose, but values generated from the CT scanner acquisition factors. The report includes radiation exposure data for exposures received during this examination. COMPARISON: CT HEAD WITHOUT CONTRAST on DOS: 03/19/25, MRI BRAIN HEAD WO CONTRAST on DOS: 03/29/24, CT STROKE CTH on DOS: 03/29/24 FINDINGS: There is no evidence of acute intracranial hemorrhage, extra-axial collection, mass effect, midline shift, herniation or hydrocephalus. Chronic appearing right basal ganglia lacunar infarct. Increased prominence of the ventricles, sulci and cisterns consistent with sequelae of atrophic cortical volume loss. The bishop-white differentiation is intact. Moderate diffuse confluent periventricular and subcortical white matter hypoattenuation is nonspecific but may be related to small vessel ischemic disease. The visualized paranasal sinuses and mastoid air cells are clear. The surrounding soft tissues and osseous structures are unremarkable. IMPRESSION: 1. No acute intracranial abnormality. 2. Chronic sequelae of microangiopathy and atrophic cortical volume loss. ORDERING PHYSICIAN: GENESIS WATSON MD PROCEDURE(s): CXRP - CHEST PORTABLE REASON: SOB ORDER NUMBER(s): [id number], ACCESSION NUMBER(s): [id number] CHEST RADIOGRAPH INDICATION: SOB TECHNIQUE: Single frontal view of the chest was obtained COMPARISON: CT HEAD WITHOUT CONTRAST on DOS: 07/14/25, XY CHEST TWO VIEWS ROUTINE on DOS: 07/04/25, XY CHEST PORTABLE on DOS: 03/19/25, CT HEAD WITHOUT CONTRAST on DOS: 03/19/25, XY CHEST PORTABLE on DOS: 02/28/25 FINDINGS: Lines and Tubes: None Lungs: Moderate diffuse increased prominence of the pulmonary vasculature. No evidence of focal consolidation. Pleura: No effusion. No pneumothorax. Cardiomediastinal contours: Unremarkable Bones: Unremarkable IMPRESSION: 1. Moderate pulmonary vascular congestion. SEPSIS Sepsis Screen Date sepsis recognized/suspect: Jul 14, 2025 Time Sepsis recognized/suspect: 0120 Recent Procedure: No On Antibiotic Therapy: No Respiratory Rate >20: No Heart Rate >90: No Temp<36 C (96.8 F) or >38.3 C: No SBP <90 or MAP <65 mmHG: No New Acute Mental Status Change: No Is the patient on CPAP, BIPAP,: No Physician Orders Chest Portable (07/14/25 01:07) Head Without Contrast (07/14/25 01:07) Electrocardigram (07/14/25 01:07) Vital Signs Date Time Temp Pulse Resp B/P (MAP) Pulse Ox O2 Delivery O2 Flow Rate FiO2 07/14/25 01:25 97.7 91 95 144/99 95 97.7 Laboratory Tests Test 07/14/25 01:16 White Blood Count 7.6 10^3/uL (4.4-10.8) Medications Medications Dose Ordered Sig/Markus Route Start Time Stop Time Status Last Admin Dose Admin Lorazepam 1 mg ONCE ONCE PO 07/14/25 03:15 07/14/25 03:16 DC 07/14/25 03:22 1 MG Assessment/Plan Assessment/Plan Generalized weakness Acute on chronic renal failure Hyperkalemia Diabetes mellitus with hyperglycemia Comfort measures only status Plan 1. Admit to telemetry unit 2. Breathing treatment 3. Pain control management 4. Management of fluids and electrolytes 5. Consultation for Nephrology/hospitalist 6. Diagnostic tests chest x-ray 7. DVT prophylaxis-on aspirin 8. Repeat labs CBC, CMP in a.m. 9. Continue with current medical management; DNR 10. Treatment plan discussed with patient/son and RN. Patient/son verbalized understanding. Plan discussed with: Patient, Other (RN) Problem List: (1) Generalized weakness (2) Acute on chronic renal failure (3) Hyperkalemia (4) Diabetes mellitus with hyperglycemia (5) Comfort measures only status Date of Service: Jul 14, 2025 Billing Provider: ETHAN PLUMMER DNP Common Visit Codes: [id number] INP/OBS CARE (HIGH) ETHAN PLUMMER DNP Jul 14, 2025 04:17
[2025-07-14 04:32] LABS: Hematocrit 34.7 % (41.0-53.0); Hemoglobin 11.5 g/dL (13.5-17.5); Mean Corpuscular Hemoglobin 32.7 pg (28.0-32.0); Mean Corpuscular Volume 99.1 fL (80.0-100.0); Nucleated Red Blood Cells % 0.1 %
[2025-07-14 04:49] LABS: Alanine Aminotransferase 18 U/L (7-40); Albumin 3.9 g/dL (3.2-4.8); Alkaline Phosphatase 107 U/L (46-116); Anion Gap 19 (5-15); BUN/Creatinine Ratio 11.7 (10.0-20.0); Bilirubin, Total 0.6 mg/dL (0.2-1.0); Calcium 9.8 mg/dL (8.7-10.4); Carbon Dioxide 24 mmol/L (20-31); Total Protein 7.3 g/dL (5.7-8.2)
[2025-07-14 04:51] LABS: Chloride 92 mmol/L (98-107); Glucose 175 mg/dL (74-106); Sodium 135 mmol/L (136-145)
[2025-07-14 04:53] LABS: Blood Urea Nitrogen 111 mg/dL (9-23); Potassium 5.6 mmol/L (3.5-5.1)
[2025-07-14] MEDS: FUROSEMIDE 20 MG/2 ML VIAL IV ONE (05:21)
[2025-07-14] MEDS: SODIUM CHLOR 0.9% PF (SALINE LOCK) 10ML VIAL/SYR IV SCH (06:00)
[2025-07-14] MEDS ORDERED: TAMS0.4C39 PO (06:34)
[2025-07-14] MEDS: InsuLIN REG 1unit/0.01ml Soln (100units/ml) SC SCH ×2 (06:43→23:20)
[2025-07-14] MEDS: ACCU-CHEK COMFORT CURVE STRIP VI SCH (06:43)
[2025-07-14] MEDS ORDERED: FUROSEMIDE 20 MG/2 ML VIAL IV SCH (10:00)
[2025-07-14] MEDS ORDERED: B-COMPLEX W/ C & FOLIC ACID(NEPHROVITE TAB) PO SCH (10:00)
[2025-07-14] MEDS: METOPROLOL TARTRATE 25 MG TAB PO SCH (14:20)
--- NOTE | 2025-07-14 15:52 | DVHINCON2 ---
Date of service: Jul 14, 2025 Referring Physician Ricardo Verde NP Reason for Consultation ESRD History of Present Illness Samuel is a 84-year-old male well known to this automobile and property underwriter from most recent hospitalization. He presents again to [facility] after having a fall at home. Patient was seen in his room he was agitated and what appeared to be hallucinating slightly. Patient was with family including his daughter and I believe a grandson. Review of the chart notable for patient's family wishing to pursue comfort measures and hospice care. No further dialysis. Past Medical History ESRD Hypertension Anemia Cognitive dysfunction Diabetes Allergies: Coded Allergies: No Known Drug Allergy (Verified Allergy, Unknown, 07/04/25) Home Meds Reported Medications Tamsulosin Hcl (Tamsulosin Hcl) 0.4 Mg Cap, 0.4 MG PO QPM for 30 Days, MG 07/14/25 Nifedipine (Nifedipine Er) 60 Mg Tab, 1 TAB PO DAILY, #30 TAB 5 Refills 07/04/25 Metoprolol Succinate (Metoprolol Succinate Er) 50 Mg Tab, 50 MG PO DAILY for 30 Days, MG 07/04/25 Isosorbide Mononitrate (Isosorbide Mononitrate Er) 30 Mg Tab, 30 MG PO DAILY for 30 Days, MG 07/04/25 Insulin Glargine (Lantus) 100 Unit/Ml Inj, 25 UNIT SC HS, INJ 07/04/25 Hydralazine Hcl (Hydralazine Hcl) 50 Mg Tab, 50 MG PO BID for 30 Days, MG 07/04/25 Atorvastatin Calcium (Lipitor) 40 Mg Tab, 1 TAB PO QPM, #90 TAB 1 Refill 07/04/25 Aspirin (Aspir-Low) 81 Mg Tab, 81 MG PO DAILY for 30 Days, MG 07/04/25 Current Medications Current Medications Medications (Trade) Dose Ordered Sig/Markus Route PRN Reason Start Time Stop Time Status Last Admin Aspirin 81 mg DAILY PO 07/14/25 10:00 07/14/25 12:45 DC Atorvastatin Calcium (Lipitor) 10 mg HS PO 07/14/25 22:00 07/14/25 12:45 DC Clonidine HCl (Catapres Tablet) 0.1 mg Q4HP PRN PO SBP>150 07/14/25 03:45 Metoprolol Tartrate (Lopressor Tablet) 25 mg BID PO 07/14/25 10:00 07/14/25 14:20 Multivit/Ca Carb/ B Cmplx/FA/Prenat (Nephro-Radha Tablet) 1 tab DAILY PO 07/14/25 10:00 07/14/25 12:46 DC Diagnostic Test (Pha) (Accu-Chek Comfort Curve T) 1 strip ACHS 07/14/25 07:00 Insulin Human Regular (InsuLIN R) HS SC 07/14/25 22:00 Insulin Human Regular (InsuLIN R) AC SC 07/14/25 07:00 Dextrose 50 ml UD PRN IV Blood Sugar LESS THAN 60 07/14/25 03:45 Sodium Chloride (Saline Lock Ns) 10 ml Q8HR IV 07/14/25 06:00 07/14/25 14:21 Acetaminophen/ Hydrocodone Bitart ([place] 5/325MG Tab) 1 tab Q4HP PRN PO MODERATE PAIN (4-6 PAIN SCALE) 07/14/25 03:45 Ondansetron HCl (Zofran) 4 mg Q4HP PRN IV NAUSEA / VOMITING 07/14/25 03:45 Docusate Sodium (Colace Capsule) 100 mg BIDPRN PRN PO FOR CONSTIPATION 07/14/25 03:45 07/14/25 12:46 DC Acetaminophen (Tylenol Tablet) 650 mg Q6HP PRN PO PAIN SCALE 1-3 OR TEMP>100.4 07/14/25 03:45 Nitroglycerin (Ntrostat Sublingual) 0.4 mg Q5MINP PRN SL FOR CHEST PAIN 07/14/25 03:45 Morphine Sulfate 2 mg Q30M PRN IV FOR CHEST PAIN 07/14/25 03:45 07/14/25 04:38 DC Furosemide (Lasix Injection) 20 mg DAILY IV 07/14/25 10:00 07/14/25 12:46 DC Family History: Alzheimer's disease G8 BROTHER Diabetes mellitus G8 FATHER G8 BROTHER G8 SISTER FH: breast cancer G8 MOTHER FH: heart attack G8 FATHER G8 BROTHER Hypertension G8 FATHER G8 BROTHER Review of Systems Unable to be obtained due to patient's current mental state H&P Exam Vital Signs/I&O Vital Sign Date Time Temp Pulse Resp B/P (MAP) Pulse Ox O2 Delivery O2 Flow Rate FiO2 07/14/25 14:20 104 136/92 07/14/25 13:23 98.1 17 92 98.1 07/14/25 08:00 Room Air* 0 21 21 Physical Exam Gen: Sitting upright holding the rails of his bed talking with family slightly agitated heent: nc/at, lungs: cta anteriorly cvs: no rub abd: soft, bowel sounds audible ext: + edema skin: no rash neuro: Disoriented, agitated Labs/Diagnostic Data Labs/Diagnostic Data Laboratory Tests Test 07/14/25 05:53 07/14/25 04:12 07/14/25 01:16 Range/Units Potassium Level 5.7 *H 5.6 *H 5.2 H 3.5-5.1 mmol/L White Blood Count 7.4 7.6 4.4-10.8 10^3/uL Red Blood Count 3.51 L 3.45 L 4.5-5.90 10^6/uL Hemoglobin 11.5 L 11.2 L 13.5-17.5 g/dL Hematocrit 34.7 L 34.0 L 41.0-53.0 % Mean Corpuscular Volume 99.1 98.8 80.0-100.0 fL Mean Corpuscular Hemoglobin 32.7 H 32.5 H 28.0-32.0 pg Mean Corpuscular Hemoglobin Concent 33.0 32.9 32.0-36.0 g/dL Red Cell Distribution Width 16.2 H 16.3 H 11.8-14.3 % Platelet Count 119 L 114 L 140-450 10^3/uL Mean Platelet Volume 10.0 10.0 6.9-10.8 fL Neutrophils (%) (Auto) 82.6 H 78.4 37.0-80.0 % Lymphocytes (%) (Auto) 6.2 L 5.6 L 10.0-50.0 % Monocytes (%) (Auto) 5.0 7.1 0.0-12.0 % Eosinophils (%) (Auto) 5.4 8.2 H 0.0-7.0 % Basophils (%) (Auto) 0.8 0.7 0.0-2.0 % Neutrophils # (Auto) 6.2 5.9 1.6-8.6 10 ^3/uL Lymphocytes # (Auto) 0.5 0.4 0.4-5.4 10 ^3/uL Monocytes # (Auto) 0.4 0.5 0-1.3 10 ^3/uL Eosinophils # (Auto) 0.4 0.6 0-0.8 10 ^3/uL Basophils # (Auto) 0.1 0.1 0-0.2 10 ^3/uL Nucleated Red Blood Cells 0.1 0.0 % Sodium Level 135 L 134 L 136-145 mmol/L Chloride Level 92 L 92 L 98-107 mmol/L Carbon Dioxide Level 24 25 20-31 mmol/L Anion Gap 19 H 17 H 5-15 Blood Urea Nitrogen 111 #*H 122 #*H 9-23 mg/dL Creatinine 9.48 H 8.92 H 0.700-1.30 mg/dL Glomerular Filtration Rate Calc 5 5 >90 mL/min BUN/Creatinine Ratio 11.7 13.7 10.0-20.0 Serum Glucose 175 H 150 H 74-106 mg/dL Calcium Level 9.8 9.5 8.7-10.4 mg/dL Total Bilirubin 0.6 0.6 0.2-1.0 mg/dL Aspartate Amino Transferase (AST) < 8 L < 8 L 13-40 U/L Alanine Aminotransferase (ALT) 18 19 7-40 U/L Alkaline Phosphatase 107 99 46-116 U/L B-Type Natriuretic Peptide > 5000.00 0-100 pg/mL Total Protein 7.3 7.0 5.7-8.2 g/dL Albumin 3.9 3.8 3.2-4.8 g/dL Prothrombin Time 13.3 H 9.3-11.8 sec Prothrombin Time INR 1.29 H 0.9-1.15 Activated Partial Thromboplast Time 31.9 24.5-34.5 SEC Assessment IMP: 1) ESRD on dialysis 2) agitation/ altered mental status 3) type 2 diabetes 4) status post mechanical fall 5) anemia REC: - patient's family verbally expressed their wish to this automobile and property underwriter regarding transition to comfort and hospice for Mr. Kendall. - this was validated with chart documentation by other providers. - patient's family requested medical therapy to help manage patient's current degree of agitation - hospice has been consulted - we will dose with 0.5 mg of lorazepam IV x1 dose. - will discontinue all further laboratory data - no further dialysis, patient full DNR. Plan discussed with: Daughter, Other NEELIMA OWENS MD Jul 14, 2025 15:52
[2025-07-14] MEDS: LORazepam 2MG/ML-1ML VIAL IV ONE (16:00)
[2025-07-14] MEDS ORDERED: ATORVASTATIN 20 MG TAB PO SCH (22:00)
[2025-07-14] MEDS: DEXTROSE (50%) 50ML SYRG IV PRN (23:30)
[2025-07-15] MEDS: LORazepam 0.5 MG TAB PO PRN (01:09)
[2025-07-15 02:30] VITALS: BP 136/105; PULSE 95; RESP 20; TEMP 97.1; O2SAT 97
[2025-07-15] MEDS ORDERED: DEXTROSE (50%) 50ML SYRG IV PRN (03:45)
[2025-07-15] MEDS: InsuLIN REG 1unit/0.01ml Soln (100units/ml) SC SCH (04:00)
[2025-07-15] MEDS: ACCU-CHEK COMFORT CURVE STRIP VI SCH (04:00)
[2025-07-15 05:00] VITALS: BP 176/91; PULSE 83; RESP 20; TEMP 97.2; O2SAT 98
[2025-07-15 08:00] VITALS: PULSE 72; PULSE 79; RESP 16; O2SAT 98
[2025-07-15 08:46] VITALS: BP 192/95; PULSE 79; RESP 16; O2SAT 98
[2025-07-15] MEDS ORDERED: MORPHINE SULFATE 4 MG/ML SYR/VIAL IV PRN (10:15)
[2025-07-15] MEDS ORDERED: LORazepam 2MG/ML-1ML VIAL IV PRN (10:15)
[2025-07-15] MEDS: SODIUM ZIRCONIUM CYCL 10 GM PAK PO ONE (10:19)
--- NOTE | 2025-07-15 12:10 | DVHDS2 ---
Discharge Summary Date of Admission Jul 14, 2025 at 03:43 Date of Discharge: Jul 14, 2025 Labs/Diagnostic Data: Laboratory Results Test 07/15/25 08:01 07/14/25 05:53 07/14/25 04:12 07/14/25 01:16 POC Glucose 96 mg/dl (70-106) Potassium Level 5.7 mmol/L (3.5-5.1) White Blood Count 7.4 10^3/uL (4.4-10.8) Red Blood Count 3.51 10^6/uL (4.5-5.90) Hemoglobin 11.5 g/dL (13.5-17.5) Hematocrit 34.7 % (41.0-53.0) Mean Corpuscular Volume 99.1 fL (80.0-100.0) Mean Corpuscular Hemoglobin 32.7 pg (28.0-32.0) Mean Corpuscular Hemoglobin Concent 33.0 g/dL (32.0-36.0) Red Cell Distribution Width 16.2 % (11.8-14.3) Platelet Count 119 10^3/uL (140-450) Mean Platelet Volume 10.0 fL (6.9-10.8) Neutrophils (%) (Auto) 82.6 % (37.0-80.0) Lymphocytes (%) (Auto) 6.2 % (10.0-50.0) Monocytes (%) (Auto) 5.0 % (0.0-12.0) Eosinophils (%) (Auto) 5.4 % (0.0-7.0) Basophils (%) (Auto) 0.8 % (0.0-2.0) Neutrophils # (Auto) 6.2 10 ^3/uL (1.6-8.6) Lymphocytes # (Auto) 0.5 10 ^3/uL (0.4-5.4) Monocytes # (Auto) 0.4 10 ^3/uL (0-1.3) Eosinophils # (Auto) 0.4 10 ^3/uL (0-0.8) Basophils # (Auto) 0.1 10 ^3/uL (0-0.2) Nucleated Red Blood Cells 0.1 % Sodium Level 135 mmol/L (136-145) Chloride Level 92 mmol/L (98-107) Carbon Dioxide Level 24 mmol/L (20-31) Anion Gap 19 (5-15) Blood Urea Nitrogen 111 mg/dL (9-23) Creatinine 9.48 mg/dL (0.700-1.30) Glomerular Filtration Rate Calc 5 mL/min (>90) BUN/Creatinine Ratio 11.7 (10.0-20.0) Serum Glucose 175 mg/dL (74-106) Calcium Level 9.8 mg/dL (8.7-10.4) Total Bilirubin 0.6 mg/dL (0.2-1.0) Aspartate Amino Transferase (AST) < 8 U/L (13-40) Alanine Aminotransferase (ALT) 18 U/L (7-40) Alkaline Phosphatase 107 U/L (46-116) B-Type Natriuretic Peptide > 5000.00 pg/mL (0-100) Total Protein 7.3 g/dL (5.7-8.2) Albumin 3.9 g/dL (3.2-4.8) Prothrombin Time 13.3 sec (9.3-11.8) Prothrombin Time INR 1.29 (0.9-1.15) Activated Partial Thromboplast Time 31.9 SEC (24.5-34.5) Other Laboratory Tests 07/14/25 05:53 07/14/25 04:12 Brief Hx & Hospital Course: Final diagnoses: End-stage renal disease Metabolic encephalopathy Acute hypoxic respiratory failure CHF, acute on chronic, ESRD Old CVA Mixed hyperlipidemia HTN Kidney CA 84-year-old male on hemodialysis was readmitted to the hospital again for weakness and confusion The patient was just here in the hospital and was discharged few days ago after he was treated for his end-stage renal disease At that time the patient continued to be very weak mostly nonambulatory and very confused The family decided to continue dialysis but when they went home they realize that the patient is actually not doing well and after consultation with all the family members they decided that they want to withdraw treatment on the patient and place him on hospice and palliative care He was readmitted here and then we consulted hospice and he was accepted to the service He was supposed to the discharge home today on hospice Hemodialysis was canceled The patient will be on palliative care and hospice care at home Condition at Discharge: Poor Final Diagnosis/Problems List ESRD Discharge Disposition: Hospice - Home SNF Discharge Will this Physician continue t: No Discharge Instruct/Medications Diet: Regular Activity: No Restrictions, As Tolerated Follow Up/Referral: Hospice at home Medications: Per hospice Scheduled Aspirin (Aspir-Low), 81 MG PO DAILY, (Reported) Atorvastatin Calcium (Lipitor), 1 TAB PO QPM, (Reported) Hydralazine Hcl (Hydralazine Hcl), 50 MG PO BID, (Reported) Insulin Glargine (Lantus), 25 UNIT SC HS, (Reported) Isosorbide Mononitrate (Isosorbide Mononitrate Er), 30 MG PO DAILY, (Reported) Metoprolol Succinate (Metoprolol Succinate Er), 50 MG PO DAILY, (Reported) Nifedipine (Nifedipine Er), 1 TAB PO DAILY, (Reported) Tamsulosin Hcl (Tamsulosin Hcl), 0.4 MG PO QPM, (Reported) Discharge Statement: "Patient was advised to return to the ER or call 911 if any headaches, dizziness, shortness of breath, chest pain, abdominal pain, bleeding, fevers, or worsening of medical condition. Patient was counseled about treatment plan, medications, possible side effects, patientverbalized understanding. All questions were answered to the best of my ability. This discharge took greater then 30 minutes in planning, reviewing documentation, counseling the patient, and discussing with other team members." ASSESSMENT ASSESSMENT Assessment ESRD Date of Service: Jul 15, 2025 Billing Provider: ABDIRIZAK WILLS MD Common Visit Codes: NOT BILLABLE ABDIRIZAK WILLS MD Jul 15, 2025 12:10
--- NOTE | 2025-07-18 14:19 | ECG ---
[facility] Test Date: 2025-07-14 Test Time: 03:49:46 Pat Name: PAUL SAEZ Department: ED Room: [facility] B Gender: M Punch Machine Operator: : [id number] Requested By: GENESIS WATSON Order Number: [id number] Reading MD: Jae Porras Measurements Intervals Benjamin Rate: 92 P: 67 CA: 183 QRS: -79 QRSD: 182 T: 105 QT: 418 QTc: 518 Interpretive Statements Sinus tachycardia Ventricular premature complex Nonspecific IVCD with LAD LVH with secondary repolarization abnormality Electronically Signed On 07-19-2025 8:33:04 PST by Jae Porras Please click the below link to view image of tracing.
== END 2025-07-15 13:10 | disposition home health service (06) | DRG 189 ==
LOC: EDBD 00:56 → ER 00:56 → OVERFLOW 03:43 → TELE-EAST 05:59 → TELE-WESTW 17:07
PROVIDERS: ADMIT Nurse Practitioner Family; ATTEND Nurse Practitioner Family
DX: J96.01 Acute respiratory failure with hypoxia (principal); G93.41 Metabolic encephalopathy; N18.6 End stage renal disease; I50.33 Acute on chronic diastolic (congestive) heart failure; I13.2 Hypertensive heart and chronic kidney disease with heart failure and with stage 5 chronic kidney disease, or end stage renal disease; N17.9 Acute kidney failure, unspecified; D64.9 Anemia, unspecified; E11.22 Type 2 diabetes mellitus with diabetic chronic kidney disease; Z99.2 Dependence on renal dialysis; Z66 Do not resuscitate; E87.5 Hyperkalemia; E11.65 Type 2 diabetes mellitus with hyperglycemia; E78.2 Mixed hyperlipidemia; Z51.5 Encounter for palliative care; Z80.3 Family history of malignant neoplasm of breast; Z82.0 Family history of epilepsy and other diseases of the nervous system; Z82.49 Family history of ischemic heart disease and other diseases of the circulatory system; Z83.3 Family history of diabetes mellitus; Z86.73 Personal history of transient ischemic attack (TIA), and cerebral infarction without residual deficits; Z90.49 Acquired absence of other specified parts of digestive tract; Z79.84 Long term (current) use of oral hypoglycemic drugs; Z79.82 Long term (current) use of aspirin; Z79.4 Long term (current) use of insulin; Z79.899 Other long term (current) drug therapy; Z85.520 Personal history of malignant carcinoid tumor of kidney
CPT/HCPCS: 36415; 70450; 71045; 80053; 82962; 83880; 84132; 85025; 85610; 85730; 93005; 96372; 96374; 99291; G0378; J1815